=== PATIENT | male | born 1945 | race Caucasian/White ===

== ENCOUNTER 2018-10-13 12:30 | Inpatient (IN) | payer MEDICARE, OTHER ==
[2018-10-13] MEDS ORDERED: Sodium Chloride 0.9% 10 ML Syringe FLUSH PRN (12:59)
--- NOTE | 2018-10-13 13:29 | CR ---
[id number] RAD/RAD Chest PA or AP 1V EXAM: SINGLE VIEW CHEST. INDICATION: SHORTNESS OF BREATH COMPARISON: NO PREVIOUS SIMILAR EXAM IS AVAILABLE FINDINGS: The lungs are clear but hyperaerated. The aorta is tortuous. The cardiomediastinal contour is enlarged. IMPRESSION: AIRWAY DISEASE. Adrián Ambrosio MD 10/13/18 [id number] Thank you for allowing us to participate in the care of your patient.
[2018-10-13 13:52] LABS: ANION GAP 16.8 mmol/L (10-20); CHLORIDE,CL 104 mmol/L (98-107); SODIUM,NA 139 mmol/L (136-145)
[2018-10-13] MEDS ORDERED: Enoxaparin 80 MG/0.8 ML Syringe SUBCUT ONE (14:26)
--- NOTE | 2018-10-13 14:36 | EDM.PDOC ---
ED HPI GENERAL MEDICAL PROBLEM - General Chief Complaint: Respiratory Problem Stated Complaint: DIZZY,SHORTNESS BREATH, LIGHTHEADED Time Seen by Provider: 10/13/18 12:35 Source of Information: Reports: Patient History Limitations: Reports: No Limitations - History of Present Illness INITIAL COMMENTS - FREE TEXT/NARRATIVE: Pt. presents to ER with complaints of shortness of breath and palpitations. He states that he was out shovelling snow today, but states that he may have been having symptoms when he woke this AM. complains of lightheadedness. No nausea. No fever or chills. Denied any recent illness or cough. Denies any jaw, arm, neck or back pain. Denies any history of tachycardia in the past. He is currently on aspirin and is not currently anticoagulated. He states that he has had issues with bradycardia in the past. Denies any headache, difficulty with speech or ambulation. No numbness/tingling in extremities or face. He had a 12 lead in the clinic in 2018 which showed sinus bradycardia with 1st degree AV block. He had a holter study in 2017 which was predominantly sinus bradycardia with occasional accelerated junction/accelerated junctional rhythm. He has a history of EDGAR. He has a history of CAD with stent placement in 2001. Onset: Today Location: Reports: Chest, Generalized Associated Symptoms: Reports: Shortness of Breath. Denies: Chest Pain, Fever/ Chills, Headaches, Malaise, Nausea/Vomiting - Related Data Allergies Allergy/AdvReac Type Severity Reaction Status Date / Time atorvastatin calcium Allergy Other Verified 10/13/18 13:46 [From Lipitor] nitroglycerin Allergy Hives Verified 10/13/18 13:46 [From Nitro-Dur] Penicillins AdvReac Vomiting Verified 10/13/18 13:46 venom-honey bee AdvReac Vomiting Verified 10/13/18 13:46 [bee venom (honey bee)] Home Meds: Home Meds Aspirin 325 mg PO DAILY 12/17/13 [History] Ferrous Sulfate [Iron] 86 mg PO DAILY 12/17/13 [History] Isosorbide Mononitrate [Imdur] 30 mg PO DAILY 12/17/13 [History] Lisinopril [Prinivil] 10 mg PO DAILY 12/17/13 [History] Melatonin 6 mg PO BEDTIME 12/17/13 [History] Multivitamin [Multi Vitamin Daily] 1 each PO DAILY 12/17/13 [History] Nitroglycerin [Nitrostat] 0.4 mg SL ASDIRECTED 12/17/13 [History] Manning-3/DHA/Epa/Fish Oil [[place]-3 Fish Oil 1,000 MG Sfgl] 1,000 mg PO TID [History] Tamsulosin HCl 0.4 mg PO BEDTIME 12/17/13 [History] metroNIDAZOLE [Metrogel 1%] 1 applic TOP DAILY 12/17/13 [History] Atropine 1% [Isopto Atropine 1% Ophth Soln] 1 drop EYELF TID 06/13/15 [History] Ciprofloxacin [Ciloxan 0.3% Ophth Soln] 1 drop EYELF TID 06/13/15 [History] Ketorolac [Acular 0.5% Ophth Soln] 1 drop EYELF TID 06/13/15 [History] Pravastatin [Pravachol] 1 tab PO DAILY 06/13/15 [History] prednisoLONE acetate [Pred Forte 1% Ophth Soln] 1 drop EYELF TID 06/13/15 [ History] Past Medical History HEENT History: Reports: Cataract, Hard of Hearing, Other (See Below) Other HEENT History: post vitreous detachment. presbyopia Cardiovascular History: Reports: CAD, High Cholesterol, Hypertension, [place], Other (See Below) Other Cardiovascular History: first degree AV block Respiratory History: Reports: COPD, Sleep Apnea Gastrointestinal History: Reports: Celiac Disease, GERD, Hiatal Hernia Other Gastrointestinal History: hx of barretts Genitourinary History: Reports: BPH Other Psychiatric History: insomnia Dermatologic History: Reports: Other (See Below) Other Dermatologic History: rosacea - Past Surgical History HEENT Surgical History: Reports: Cataract Surgery, Tonsillectomy Cardiovascular Surgical History: Reports: Coronary Artery Stent, Other (See Below) Other Cardiovascular Surgeries/Procedures: coronary angioplasty GI Surgical History: Reports: Colonoscopy Musculoskeletal Surgical History: Reports: Shoulder Surgery Social & Family History - Tobacco Use Smoking Status *Q: Former Smoker Used Tobacco, but Quit: No - Recreational Drug Use Recreational Drug Use: No ED ROS GENERAL - Review of Systems Review Of Systems: See Below Constitutional: Reports: No Symptoms HEENT: Reports: No Symptoms Respiratory: Reports: Shortness of Breath (resolved during stay in ER) Cardiovascular: Reports: Lightheadedness, Palpitations. Denies: Chest Pain Endocrine: Reports: No Symptoms GI/Abdominal: Reports: No Symptoms : Reports: No Symptoms Musculoskeletal: Reports: No Symptoms Skin: Reports: No Symptoms Neurological: Reports: No Symptoms Psychiatric: Reports: No Symptoms Hematologic/Lymphatic: Reports: No Symptoms Immunologic: Reports: No Symptoms ED EXAM, GENERAL - Physical Exam Exam: See Below Exam Limited By: No Limitations General Appearance: Alert, WD/WN, No Apparent Distress Neck: Normal Inspection, Supple, Non-Tender Respiratory/Chest: No Respiratory Distress, Lungs Clear, Normal Breath Sounds, No Accessory Muscle Use, Chest Non-Tender Cardiovascular: Normal Peripheral Pulses, No Edema, Irregularly Irregular, Other (intermittent episodes of tachycardia into the 150-160 range (atrial fibrillation)) Peripheral Pulses: 3+: Radial (L) GI/Abdominal: Non-Tender, No Organomegaly, No Distention, No Mass (Male) Exam: Deferred Rectal (Males) Exam: Deferred Back Exam: Normal Inspection, Full Range of Motion, NT Extremities: Normal Inspection, Normal Range of Motion, Non-Tender, Normal Capillary Refill, No Pedal Edema Neurological: Alert, Oriented, CN II-XII Intact, Normal Cognition, Normal Gait, Normal Reflexes, No Motor/Sensory Deficits Psychiatric: Normal Affect, Normal Mood Skin Exam: Warm, Dry, Intact, Normal Color, No Rash EKG INTERPRETATION Rhythm: A-Fib (predominently in the low 100 range for rate with occasional RVR. Possible short run of v-tach (less than 10 beats) during which time patient was conscious and asymtomatic.) Course - Vital Signs Last Recorded V/S: Last Vital Signs Temp 36.4 C 10/13/18 12:35 Pulse 60 10/13/18 12:35 Resp 20 10/13/18 12:35 BP 123/81 10/13/18 12:35 Pulse Ox 94 L 10/13/18 12:35 - Orders/Labs/Meds Orders: Active Orders 24 hr Category Date Time Status EKG Documentation Completion [RC] STAT Care 10/13/18 12:59 Ordered CBC W/O DIFF,HEMOGRAM [HEME] Q3D Lab 10/14/18 07:00 Ordered CBC W/O DIFF,HEMOGRAM [HEME] Q3D Lab 10/17/18 07:00 Ordered CBC W/O DIFF,HEMOGRAM [HEME] Q3D Lab 10/20/18 07:00 Ordered CBC W/O DIFF,HEMOGRAM [HEME] Q3D Lab 10/23/18 07:00 Ordered CBC W/O DIFF,HEMOGRAM [HEME] Q3D Lab 10/26/18 07:00 Ordered CBC W/O DIFF,HEMOGRAM [HEME] Q3D Lab 10/29/18 07:00 Ordered CBC W/O DIFF,HEMOGRAM [HEME] Q3D Lab 11/01/18 07:00 Ordered Enoxaparin [Lovenox] Med 10/13/18 14:26 Once 80 mg SUBCUT ONETIME ONE Sodium Chloride 0.9% [Saline Flush] Med 10/13/18 12:59 Ordered 10 ml FLUSH ASDIRECTED PRN Peripheral IV Insertion Adult [OM.PC] Routine Oth 10/13/18 12:59 Ordered Medication Orders Sodium Chloride (Saline Flush) 10 ml FLUSH ASDIRECTED PRN PRN Reason: Keep Vein Open Labs: Laboratory Tests 10/13/18 10/13/18 10/13/18 Range/Units 13:13 13:13 13:13 WBC 6.5 (4.0-10.0) x10^3/uL RBC 4.40 L (4.5-6.0) x10^6/uL Hgb 13.3 L (14.0-18.0) g/dL Hct 40.1 (40.0-52.0) % MCV 91.1 (78.0-93.0) fL MCH 30.2 (26.0-32.0) pg MCHC 33.2 (32.0-36.0) g/dL RDW Coeff of Rogelio 14.1 (10.0-15.0) % Plt Count 263 (130-400) x10^3/uL Neut % (Auto) 79.7 (50.0-80.0) % Lymph % (Auto) 12.7 L (25.0-50.0) % George % (Auto) 6.0 (2.0-11.0) % Eos % (Auto) 1.1 (0.0-4.0) % Baso % (Auto) 0.5 (0.2-1.2) % PT 10.4 (9.6-11.4) SEC INR 1.0 L (2.0-3.5) Sodium 139 (136-145) mmol/L Potassium 3.8 (3.5-5.1) mmol/L Chloride 104 (98-107) mmol/L Carbon Dioxide 22 (21-32) mmol/L Anion Gap 16.8 (10-20) mmol/L BUN 17 (7-18) mg/dL Creatinine 0.7 (0.70-1.30) mg/dL Est Cr Clr Drug Dosing TNP Estimated GFR (MDRD) > 60 Glucose 89 (74-106) mg/dL Calcium 8.5 (8.5-10.1) mg/dL Corrected Calcium 9.06 (8.5-10.1) mg/dL Phosphorus 3.2 (2.6-4.7) mg/dL Magnesium 1.5 L (1.8-2.4) mg/dL Total Bilirubin 0.5 (0.2-1.0) mg/dL AST 19 (15-37) U/L ALT 28 (16-63) U/L Alkaline Phosphatase 63 (46-116) U/L Troponin I < 0.017 (<=0.056) ng/mL NT-Pro-B Natriuret Pep 48 (<=125) pg/mL Total Protein 6.0 L (6.4-8.2) g/dL Albumin 3.3 L (3.4-5.0) g/dL Globulin 2.7 Albumin/Globulin Ratio 1.22 Meds: Medications Generic Name Dose Route Start Last Admin Trade Name Freq PRN Reason Stop Dose Admin Sodium Chloride 10 ml 10/13/18 12:59 Saline Flush FLUSH ASDIRECTED PRN Keep Vein Open Departure - Departure Time of Disposition: 14:47 Disposition: Admitted As Inpatient 64 Clinical Impression: Atrial fibrillation with RVR - Discharge Information Care Plan Goals: Pt. will be admitted acutely. Dr. Frank will be admitting for Dr. Parmar. He is a code 1. He was started on lovenox 80mg SQ in ER. He was not having consistent episodes of tachycardia so he was not given any parenteral rate control medication. Dr. Frank states that she is going to contact Cardiology to determine in Amiodarone would be a better agent that a CCB or beta block given his episode of v-tach. All questions were answered. - My Orders Last 24 Hours: My Active Orders 10/13/18 12:59 EKG Documentation Completion [RC] STAT Sodium Chloride 0.9% [Saline Flush] 10 ml FLUSH ASDIRECTED PRN Peripheral IV Insertion Adult [OM.PC] Routine 10/13/18 14:26 Enoxaparin [Lovenox] 80 mg SUBCUT ONETIME ONE 10/14/18 07:00 CBC W/O DIFF,HEMOGRAM [HEME] Q3D 10/17/18 07:00 CBC W/O DIFF,HEMOGRAM [HEME] Q3D 10/20/18 07:00 CBC W/O DIFF,HEMOGRAM [HEME] Q3D 10/23/18 07:00 CBC W/O DIFF,HEMOGRAM [HEME] Q3D 10/26/18 07:00 CBC W/O DIFF,HEMOGRAM [HEME] Q3D 10/29/18 07:00 CBC W/O DIFF,HEMOGRAM [HEME] Q3D 11/01/18 07:00 CBC W/O DIFF,HEMOGRAM [HEME] Q3D - Assessment/Plan Last 24 Hours: My Active Orders 10/13/18 12:59 EKG Documentation Completion [RC] STAT Sodium Chloride 0.9% [Saline Flush] 10 ml FLUSH ASDIRECTED PRN Peripheral IV Insertion Adult [OM.PC] Routine 10/13/18 14:26 Enoxaparin [Lovenox] 80 mg SUBCUT ONETIME ONE 10/14/18 07:00 CBC W/O DIFF,HEMOGRAM [HEME] Q3D 10/17/18 07:00 CBC W/O DIFF,HEMOGRAM [HEME] Q3D 10/20/18 07:00 CBC W/O DIFF,HEMOGRAM [HEME] Q3D 10/23/18 07:00 CBC W/O DIFF,HEMOGRAM [HEME] Q3D 10/26/18 07:00 CBC W/O DIFF,HEMOGRAM [HEME] Q3D 10/29/18 07:00 CBC W/O DIFF,HEMOGRAM [HEME] Q3D 11/01/18 07:00 CBC W/O DIFF,HEMOGRAM [HEME] Q3D
[2018-10-13] MEDS ORDERED: Magnesium Sulfate/Water 50 ML IV ONE (15:26)
[2018-10-13] MEDS: Metoprolol Succinate 25 MG Tab.ER PO SCH (15:47)
[2018-10-13] MEDS: Fish Oil/Omega-3 Fatty Acids 1 Gm Cap PO SCH (19:38)
[2018-10-13] MEDS ORDERED: CLINDAMYCIN PHOSPHATE TP SCH (20:00)
[2018-10-13] MEDS ORDERED: Tamsulosin 0.4 MG Cap.ER PO SCH (20:00)
[2018-10-13] MEDS ORDERED: Melatonin 3 MG Tab PO SCH (20:00)
[2018-10-13] MEDS ORDERED: diphenhydrAMINE 25 MG Cap PO SCH (20:00)
--- NOTE | 2018-10-13 23:48 | HP ---
CHIEF COMPLAINT: Palpitations. HISTORY OF PRESENT ILLNESS: The patient is a 72-year-old male who presented to the emergency room with feeling short of breath with palpating heart. He commented he had been out shoveling snow at about 9 this morning and had several episodes of these. They last for a few seconds and then they get better. He decided to come to the emergency room at about 1 p.m. When he was seen by Rolo Brandon in the emergency room, he was found to have a heart rate of 122 with atrial fibrillation noted. As the patient relaxed, his heart rate did seem to go down. He was not given anything to help slow down his heart rate, but then it was noted that he did throw some PVCs, and there were a few concurrent PVCs up to 5 runs at a time. He was asymptomatic with these. To note, the patient has had previous coronary artery disease and he has had sinus bradycardia before. He had a stent placed in 2001 for coronary artery disease. He did have a Holter monitor done in 2017, which showed predominantly sinus rhythm with 32% sinus bradycardia, minimum heart rate 37, up to 63. He did have SVEs of 4 runs and some junctional rhythms which were rare. The patient has not had an echocardiogram done since his original heart problems in 2001, and otherwise he feels quite healthy. The patient does normally doctor with GI for problems with H. pylori gastritis with Lucero esophagitis as well as celiac disease. MEDICATIONS: His medications he is currently on are isosorbide mononitrate 30 mg half a pill every morning, Protonix 40 mg 1 pill in the morning, aspirin 81 mg 1 pill daily, clindamycin T 1% gel twice a day, Benadryl 25 mg 1 pill at bedtime to help with sleep, lisinopril 10 mg 1 pill daily, melatonin 3 mg 2 pills at bedtime, multivitamin 1 pill a day, [place] fish oil 1000 mg 1 pill 3 times a day, Protonix 40 mg 1 pill daily, Pravachol 20 mg 1 pill daily, Flomax 0.4 mg 1 pill every night at bedtime. The patient does use a CPAP machine for obstructive sleep apnea. ALLERGIES: Penicillin, Transderm-Nitro transdermal base, bee stings, Lipitor causes myalgias. PAST MEDICAL HISTORY: The patient has had coronary artery disease with stent placed in 03/2002. He is known to have Lucero esophagitis since 2006. He has had multiple EGDs for this. He has had some anemia in 2008, BPH since 2006. COPD. He used to smoke; he quit smoking in 2001, now he chews tobacco. He has had esophageal reflux disease, hiatal hernia with gastroesophageal reflux disease, hypercholesterolemia, hypertension, insomnia, obesity, obstructive sleep apnea. He had a sleep study on 06/26/2002, AHI was 26. He is on CPAP with 14 cm of water. He has had rosacea. Substance abuse, been abstinent since 2018 from alcohol. The patient does have celiac disease. PAST SURGICAL HISTORY: He has had cardiac cath; cataract surgery; colonoscopies multiple times, most recent on 11/25/2017. He had eye surgery, right shoulder surgery, tonsillectomy, and upper endoscopy with ablation in 2018. FAMILY MEDICAL HISTORY: His dad had some heart issues. Mother of pneumonia with some heart issues. SOCIAL HISTORY: The patient is a bachelor. Never been . 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 He had smoked a pack a day until he quit in 2001. He used to have problems with alcohol, but he has been abstinent since 2001 and has been actively involved with AA. REVIEW OF SYSTEMS: No recent cough, cold. No sore throat. No nausea. The patient does have celiac disease. He will have diarrhea if he does not follow his diet. No swelling in his lower extremities. He has had problems with bladder emptying out. He has not had any enlarged lymph glands. His mood is good. PHYSICAL EXAMINATION: Vital Signs: Objectively, his weight is 73.48 kg, height 1.65 m, temperature is 36.4, pulse 60, blood pressure is 123/81, respiratory rate is 20, and sats are 94. Pulse is now down to 60 from 122. Skin: [place], warm, and dry. HEENT: His nose is somewhat enlarged. His skin is somewhat vannessa on his cheeks. Pharynx is normal. Pupils are equal and reactive to light. Neck: Supple. No anterior cervical lymphadenopathy. No thyromegaly. No JVD. Heart: Regular rate and rhythm, without murmurs or bruits. Lungs: Clear to auscultation. Abdomen: Soft and nontender. No hepatosplenomegaly. Lower Extremities: No edema. Neurologic: He moves all extremities symmetric. He walks unassisted. His mood is very happy, bright, pleasant to visit with. LABORATORY STUDIES: Initial EKG in the emergency room showed atrial fibrillation with rapid ventricular rate; nonspecific T-wave abnormality; rate is at 122. The patient's chest x-ray was done which was clear other than some COPD changes present. His heart rhythm monitor had shown up to 5 beats of ventricular tachycardia present. Repeat EKG once he had come to the floor showed sinus bradycardia with PACs, first degree AV block, rate was 59. His laboratory data shows his white blood cell count 6.5, hemoglobin 13.3, and platelets 263. PT 1.0, magnesium 1.5, sodium 139, potassium 3.8, creatinine 0.7. GFR is greater than 60. BNP is 17, glucose 89, calcium 8.5, phosphorus 3.2, albumin 0.5, AST 19, ALT 28, and alkaline phosphatase 63. Troponin less than 0.017. ProBNP 48, total protein 6, albumin 3.3. I did contact on-call learning consultant regarding runs of atrial fibrillation with ventricular tachycardia present. Dr. Frank was contacted at 3:15 by [facility] [employer] [facility], and he returned the phone call at approximately 3:30. He reviewed tracings, he was not that impressed as the patient's rhythm now was going back to sinus rhythm, but some atrial irregularity. The patient had received Lovenox 80 mg in the emergency room. He did feel that the patient should be placed on a low-dose beta rodrick as a heart rate limiting medication. He felt possibly the wider complexes may be atrial fibrillation with aberrancy, and he did feel the patient should be anticoagulated. Discussed with the patient about use of medications that do not need to be monitored, such as Eliquis or Xarelto, or Coumadin, which would need to be monitored. Due to the potential short nature of use of anticoagulants, opted to start the patient on Eliquis, which will be started tomorrow. Also, the patient's magnesium should be replaced, which may also help his heart rhythm. If he would happen to have further abnormal heart rhythms, he would need to be transferred to [place]. IMPRESSION: 1. Paroxysmal atrial fibrillation with rapid ventricular rate, now slowed. 2. Ventricular tachycardia, paroxysmal. 3. Hypomagnesemia. 4. Coronary artery disease. 5. Chronic obstructive pulmonary disease. 6. Hypertension. 7. Obstructive sleep apnea. 8. Celiac disease. 9. Lucero esophagitis. 10.Hypercholesterolemia. PLAN: The patient will be placed on acute care. He will be monitored with telemetry with his heart rhythm. We will give IV replacement of his magnesium as well as we will start him on oral magnesium. We will start Eliquis tomorrow since he has already had Lovenox today. The patient is code level 1 status. If his heart would do recurrent abnormal heart rhythm problems, then the patient would need to have urgent transfer to [place]. To note currently, [place] has been under a blizzard warning and no travel has been advised, and the interstate is closed to [place], and so travel will be very treacherous to [place], and so therefore I do not want to transfer unless would be absolutely necessary. The patient is code level 1 status. To note, the patient will be admitted to Dr. Brandon Parmar's service; however, Dr. Brandon Parmar is not available today or tomorrow, so I will follow patient until if he is discharged tomorrow, or if he continues to stay in the weekend, Dr. Sharona Venegas will follow him. Cardiology recommended doing an echocardiogram as an outpatient as well as setting up a formal cardiology consult for the patient. We will have the patient be seen by Dr. Brandon Parmar within a week's time of discharge from the hospital. He commented that he does have an appointment to see Dr. Parmar for physical in about 3 weeks' time, but it is felt that was too long to wait to get this arranged. GM10/13/2018 16:14:01 MODL: 10/13/2018 23:38:06 /[id number]
[2018-10-14] MEDS: Pantoprazole 40 MG Tab.CR PO SCH ×2 (05:49→06:03)
[2018-10-14 05:53] VITALS: BP 174/97
[2018-10-14 07:18] LABS: CHLORIDE,CL 106 mmol/L (98-107); SODIUM,NA 139 mmol/L (136-145)
[2018-10-14] MEDS: Metoprolol Succinate 25 MG Tab.ER PO SCH (07:38)
[2018-10-14] MEDS: Fish Oil/Omega-3 Fatty Acids 1 Gm Cap PO SCH (07:38)
[2018-10-14] MEDS ORDERED: Apixaban 2.5 MG Tab PO SCH (08:00)
[2018-10-14] MEDS ORDERED: Lisinopril 10 MG Tab PO SCH (08:00)
[2018-10-14] MEDS ORDERED: Magnesium Oxide 400 MG Tab PO SCH ×2 (08:00→20:00)
[2018-10-14] MEDS ORDERED: Isosorbide Mononitrate 30 MG Tab.ER PO SCH (08:00)
[2018-10-14] MEDS ORDERED: Aspirin 81 MG Tab.EC PO SCH (08:00)
[2018-10-14] MEDS ORDERED: Multivitamin, Stress Formula with Zinc Tab PO SCH (08:00)
[2018-10-14] MEDS ORDERED: PRAVASTATIN PO SCH (08:00)
[2018-10-14] MEDS ORDERED: Magnesium Oxide 400 MG Tab PO ONE (08:32)
--- NOTE | 2018-10-14 09:31 | PN ---
Progress Note for BRENDAN DOZIER Date: 10/14/2018 Room #: VM.204 SUBJECTIVE: The patient has felt fine. He has done well overnight. His telemetry has shown spells of atrial fibrillation with a few ventricular ectopic beats, but nothing that has been more than a 2-beat run, and he has not had any symptoms of these whatsoever. OBJECTIVE: Vital Signs: His temperature is 36.5. He has not had a weight yet this morning. Pulse is 56, blood pressure is 174/97, respiratory rate 19, and sats 95%. General: Appears alert, in no acute distress. Heart: Regular rate and rhythm. Lungs: Clear to auscultation. Abdomen: Soft. LABORATORY DATA: His lab this morning shows hemoglobin 13.2 and white blood cell count 4.7. Sodium 139, potassium 4.0, creatinine 0.6, magnesium is still low at 1.6. IMAGING: EKG this morning showed 1st degree sinus bradycardia with PVCs. IMPRESSION: 1. Atrial fibrillation with rapid ventricular rate, now controlled. 2. Sinus bradycardia. 3. Paroxysmal ventricular tachycardia. 4. Hypomagnesemia. PLAN: We will discharge the patient home. We will increase his oral magnesium to twice a day, and we will give him an extra dose this morning. I did notify Dr. Brandon Parmar of the patient having been in the hospital and need for an echo as an outpatient as well as short-term followup next week in the clinic and eventual referral to Cardiology. The patient feels comfortable going home. The patient was told if he has repeat symptoms, he should return to the emergency room. GM10/14/2018 08:34:52 MODL: 10/14/2018 08:56:56 /[id number] AQUILINO
--- NOTE | 2018-10-14 10:19 | DISCH ---
PRIMARY DIAGNOSES: 1. Atrial fibrillation with rapid ventricular response. 2. Paroxysmal atrial fibrillation. 3. Paroxysmal ventricular tachycardia. 4. Hypomagnesemia. 5. Coronary artery disease. 6. Chronic obstructive pulmonary disease. 7. Hypertension. 8. Benign prostatic hypertrophy. SUMMARY OF HISTORY AND PHYSICAL: The patient is a 72-year-old male, who presented to the emergency room with palpitations. He had been out shoveling heavy wet snow, and he had several episodes where he felt his heart palpitating and became short of breath. When he came into the emergency room, his pulse was in the 120s with atrial fibrillation. He has not had a past history of atrial fibrillation that he has been aware of. However, while the patient was waiting in the emergency room, he did throw a few ventricular tachycardia beats, longest beat was 5 in a row. It was noted that his magnesium was low at 1.5. SUMMARY OF HOSPITAL COURSE: The patient was admitted to Acute Care. He had been given 1 dose of Lovenox in the emergency room. I did contact Cardiology, and they did recommend placing him on a beta-rodrick, even though he was in first-degree AV block with rates that do go down into the 50s. The patient was given IV magnesium 2 g as well as started on oral magnesium. He was started on Eliquis as an anticoagulant. Throughout the night in his stay, his heart rhythm has ranged between sinus rhythm as well as atrial fibrillation with some PVCs. His blood pressure was noted to be slightly elevated at the time of discharge, but he actually had been having a normal blood pressure of 123/81. So, I am not certain if this was related to machine. His troponin had been checked and initial troponin was less than 0.017, so it was not re-checked. ProBNP was 48. Chest x-ray just showed COPD. Magnesium was 1.5 on admission and it was 1.6 on the day of discharge. His potassium was 4.0, creatinine was 0.6, and GFR was greater than 60. Hemoglobin is 13.2 and platelet count is 247. DISCHARGE MEDICATIONS: Medications at the time of discharge will be 1. Eliquis 5 mg one p.o. b.i.d. 2. Aspirin 81 mg one pill daily. 3. Clindamycin 0.5 g topical b.i.d. 4. Benadryl 25 mg at bedtime. 5. Fish oil 1 g three times a day. 6. Isosorbide mononitrate 15 mg daily. 7. Lisinopril 10 mg daily. 8. Magnesium 400 mg b.i.d. 9. Melatonin 6 mg at bedtime. 10.Metoprolol succinate XL 25 mg half a pill daily. 11.Multivitamin one pill a day. 12.Protonix 40 mg one pill daily. 13.Pravachol 20 mg one pill daily. 14.Flomax 0.4 mg one pill at bedtime. DISCHARGE PLAN: The patient's activity is normal. He is to follow up with Dr. Alejo Parmar in the clinic next 4 to 5 days, and he will need to be set up for an echocardiogram as an outpatient as well as referral to Cardiology for his cardiac dysrhythmias. The patient was told to return to the emergency room if he has repeat palpitations. To note the patient is code level 1 status. GM10/14/2018 08:39:09 MODL: 10/14/2018 09:53:33 /[id number] MTDD
== END 2018-10-14 09:40 | disposition home or self-care (01) | DRG 310 ==
LOC: VM.ED 12:30 → VM.MS 14:36
PROVIDERS: ADMIT Family Medicine; ATTEND Family Medicine
DX: I48.0 Paroxysmal atrial fibrillation (principal); I25.10 Atherosclerotic heart disease of native coronary artery without angina pectoris; I47.2 Ventricular tachycardia; J44.9 Chronic obstructive pulmonary disease, unspecified; K21.9 Gastro-esophageal reflux disease without esophagitis; I10 Essential (primary) hypertension; E78.00 Pure hypercholesterolemia, unspecified; G47.00 Insomnia, unspecified; I44.0 Atrioventricular block, first degree; E66.9 Obesity, unspecified; N40.0 Benign prostatic hyperplasia without lower urinary tract symptoms; G47.33 Obstructive sleep apnea (adult) (pediatric); E83.42 Hypomagnesemia; D64.9 Anemia, unspecified; K22.70 Barrett's esophagus without dysplasia; H52.4 Presbyopia; R00.1 Bradycardia, unspecified; I25.2 Old myocardial infarction; Z91.030 Bee allergy status; Z87.891 Personal history of nicotine dependence; Z95.5 Presence of coronary angioplasty implant and graft; Z88.0 Allergy status to penicillin; Z79.82 Long term (current) use of aspirin; Z98.49 Cataract extraction status, unspecified eye; Z88.8 Allergy status to other drugs, medicaments and biological substances; Z79.899 Other long term (current) drug therapy; Z68.27 Body mass index [BMI] 27.0-27.9, adult
CPT/HCPCS: 36415; 71045; 80048; 80053; 83735; 83880; 84100; 84484; 85025; 85610; 93005; 94660; 96372; 99285-25; A9270-GY; J1650; J3475

== ENCOUNTER 2019-02-09 08:40 | Emergency (ER) | payer MEDICARE, OTHER ==
[2019-02-09] MEDS ORDERED: Diltiazem 50 MG/10 ML SDV IVPUSH ONE (09:12)
[2019-02-09] MEDS ORDERED: Sodium Chloride 0.9% 10 ML Syringe FLUSH PRN (09:12)
--- NOTE | 2019-02-09 09:24 | EDM.PDOC ---
ED HPI GENERAL MEDICAL PROBLEM - General Chief Complaint: Cardiovascular Problem Stated Complaint: sob, palpitations Time Seen by Provider: 02/09/19 08:55 Source of Information: Reports: Patient History Limitations: Reports: No Limitations - History of Present Illness INITIAL COMMENTS - FREE TEXT/NARRATIVE: Patient comes in this AM with complaints of shortness of breath and palpitations. Was seen here in September for similar type symptoms. Did get a BIVI pacemaker placed by Dr. Jha at [facility] in [place] January 30, 2019. Incisional site looks good. No sign of infection. Denies chest pain, headache , dizziness, abdominal pain. Is urinating and having regular bowel movements. Denies blood in either. No swelling. Is on warfarin for paroxysmal a-fib, 25 mg daily toprol. Significant GI history includes: Gastroesophageal reflux disease with esophagitis, Bacterial infection due to H. pylori, Lucero's esophagus with high grade dysplasia, Celiac disease, Hiatal hernia with gastroesophageal reflux. History of MA with stent placement 2001. Onset: Today, Sudden Duration: Intermittent Location: Reports: Chest Associated Symptoms: Reports: Shortness of Breath - Related Data Allergies Allergy/AdvReac Type Severity Reaction Status Date / Time atorvastatin calcium Allergy Other Verified 02/09/19 09:32 [From Lipitor] nitroglycerin Allergy Hives Verified 02/09/19 09:32 [From Nitro-Dur] Penicillins AdvReac Vomiting Verified 02/09/19 09:32 venom-honey bee AdvReac Vomiting Verified 02/09/19 09:32 [bee venom (honey bee)] Home Meds: Home Meds Isosorbide Mononitrate [Imdur] 15 mg PO DAILY 12/17/13 [History] Lisinopril [Prinivil] 10 mg PO DAILY 12/17/13 [History] Melatonin 6 mg PO BEDTIME 12/17/13 [History] Multivitamin [Multi Vitamin Daily] 1 each PO DAILY 12/17/13 [History] [place]-3/DHA/Epa/Fish Oil [[place]-3 Fish Oil 1,000 MG Sfgl] 1,000 mg PO TID [History] Tamsulosin HCl 0.4 mg PO BEDTIME 12/17/13 [History] Pravastatin [Pravachol] 20 mg PO DAILY 06/13/15 [History] Aspirin [Halfprin] 81 mg PO DAILY 10/13/18 [History] Clindamycin Phosphate [Cleocin T] 0.5 gm TP BID 10/13/18 [History] Pantoprazole Sodium [Protonix] 40 mg PO DAILY 10/13/18 [History] diphenhydrAMINE [Benadryl] 25 mg PO BEDTIME 10/13/18 [History] Metoprolol Succinate [Toprol XL] 25 mg PO DAILY 02/09/19 [History] Warfarin Sodium [Jantoven] 5 mg PO ASDIRECTED 02/09/19 [History] Past Medical History HEENT History: Reports: Cataract, Hard of Hearing, Other (See Below) Other HEENT History: post vitreous detachment. presbyopia Cardiovascular History: Reports: CAD, High Cholesterol, Hypertension, [place], Pacemaker, Other (See Below) Other Cardiovascular History: first degree AV block Respiratory History: Reports: COPD, Sleep Apnea Gastrointestinal History: Reports: Celiac Disease, GERD, Hiatal Hernia Other Gastrointestinal History: hx of barretts Genitourinary History: Reports: BPH Other Psychiatric History: insomnia Dermatologic History: Reports: Other (See Below) Other Dermatologic History: rosacea - Infectious Disease History Infectious Disease History: Reports: Chicken Pox - Past Surgical History HEENT Surgical History: Reports: Cataract Surgery, Tonsillectomy Cardiovascular Surgical History: Reports: Coronary Artery Stent, Other (See Below) Other Cardiovascular Surgeries/Procedures: coronary angioplasty GI Surgical History: Reports: Colonoscopy Musculoskeletal Surgical History: Reports: Shoulder Surgery Social & Family History - Family History Family Medical History: Noncontributory - Tobacco Use Years of Tobacco use: 50 Packs/Tins Daily: 0.2 - Caffeine Use Caffeine Use: Reports: Coffee, Soda ED ROS GENERAL - Review of Systems Review Of Systems: See Below Constitutional: Reports: No Symptoms HEENT: Reports: No Symptoms Respiratory: Reports: Shortness of Breath Cardiovascular: Reports: Palpitations Endocrine: Reports: No Symptoms GI/Abdominal: Reports: No Symptoms : Reports: No Symptoms Musculoskeletal: Reports: No Symptoms Skin: Reports: No Symptoms Neurological: Reports: Dizziness Psychiatric: Reports: No Symptoms Hematologic/Lymphatic: Reports: No Symptoms Immunologic: Reports: No Symptoms ED EXAM, GENERAL - Physical Exam Exam: See Below Exam Limited By: No Limitations General Appearance: Alert, WD/WN, No Apparent Distress Eye Exam: Bilateral Eye: EOMI, Normal Inspection Ears: Normal TMs Nose: Normal Inspection, Normal Mucosa, No Blood Throat/Mouth: Normal Inspection, Normal Lips, Normal Teeth, Normal Gums, Normal Oropharynx, Normal Voice, No Airway Compromise Head: Atraumatic, Normocephalic Neck: Normal Inspection, Supple, Non-Tender, Full Range of Motion Respiratory/Chest: No Respiratory Distress, Lungs Clear, Normal Breath Sounds, No Accessory Muscle Use, Chest Non-Tender Cardiovascular: Normal Peripheral Pulses, Regular Rate, Rhythm, No Edema, No Gallop, No JVD, No Murmur, No Rub Peripheral Pulses: 2+: Posterior Tibial (L), Posterior Tibial (R), Dorsalis Pedis (L), Dorsalis Pedis (R) GI/Abdominal: Normal Bowel Sounds, Soft, Non-Tender, No Organomegaly, No Distention, No Abnormal Bruit, No Mass Back Exam: Normal Inspection, Full Range of Motion, NT Extremities: Normal Inspection, Normal Range of Motion, Non-Tender, Normal Capillary Refill, No Pedal Edema Neurological: Alert, Oriented, CN II-XII Intact, Normal Cognition, Normal Gait, Normal Reflexes, No Motor/Sensory Deficits Psychiatric: Normal Affect, Normal Mood Course - Vital Signs Last Recorded V/S: Last Vital Signs Temp 36.3 C 02/09/19 08:45 Pulse 73 02/09/19 10:30 Resp 16 02/09/19 10:30 BP 148/86 H 02/09/19 10:30 Pulse Ox 97 02/09/19 10:30 - Orders/Labs/Meds Orders: Active Orders 24 hr Category Date Time Status EKG 12 Lead [EKG Documentation Completion] [RC] STAT Care 02/09/19 10:09 Ordered EKG Documentation Completion [RC] STAT Care 02/09/19 09:12 Active Sodium Chloride 0.9% [Saline Flush] Med 02/09/19 09:12 Active 10 ml FLUSH ASDIRECTED PRN Saline Lock Insert [OM.PC] Routine Oth 02/09/19 09:12 Ordered Medication Orders Sodium Chloride (Saline Flush) 10 ml FLUSH ASDIRECTED PRN PRN Reason: Keep Vein Open Labs: Laboratory Tests 02/09/19 02/09/19 02/09/19 Range/Units 09:12 09:12 09:12 WBC 4.4 (4.0-10.0) x10^3/uL RBC 4.43 L (4.5-6.0) x10^6/uL Hgb 13.5 L (14.0-18.0) g/dL Hct 39.7 L (40.0-52.0) % MCV 89.6 (78.0-93.0) fL MCH 30.5 (26.0-32.0) pg MCHC 34.0 (32.0-36.0) g/dL RDW Coeff of Rogelio 14.2 (10.0-15.0) % Plt Count 238 (130-400) x10^3/uL Neut % (Auto) 68.0 (50.0-80.0) % Lymph % (Auto) 20.9 L (25.0-50.0) % [place] % (Auto) 7.7 (2.0-11.0) % Eos % (Auto) 2.7 (0.0-4.0) % Baso % (Auto) 0.7 (0.2-1.2) % PT 18.9 H (10.0-12.8) SEC INR 1.7 L (2.0-3.5) Sodium 139 (136-145) mmol/L Potassium 4.0 (3.5-5.1) mmol/L Chloride 103 (98-107) mmol/L Carbon Dioxide 26 (21-32) mmol/L Anion Gap 14.0 (10-20) mmol/L BUN 12 (7-18) mg/dL Creatinine 0.8 (0.70-1.30) mg/dL Est Cr Clr Drug Dosing 72.00 mL/min Estimated GFR (MDRD) > 60 Glucose 121 H (74-106) mg/dL Calcium 8.9 (8.5-10.1) mg/dL Corrected Calcium 9.30 (8.5-10.1) mg/dL Magnesium 1.3 L (1.8-2.4) mg/dL Total Bilirubin 0.3 (0.2-1.0) mg/dL AST 16 (15-37) U/L ALT 24 (16-63) U/L Alkaline Phosphatase 69 (46-116) U/L Troponin I (<=0.056) ng/mL NT-Pro-B Natriuret Pep (<=450) pg/mL Total Protein 6.2 L (6.4-8.2) g/dL Albumin 3.5 (3.4-5.0) g/dL Globulin 2.7 Albumin/Globulin Ratio 1.30 TSH, Ultra Sensitive 3.053 (0.358-3.74) uIU/mL Urine Color (YELLOW) Urine Appearance (CLEAR) Urine pH (5.0-8.0) Ur Specific [place] Urine Protein (NEGATIVE) mg/dL Urine Glucose (UA) (NEGATIVE) mg/dL Urine Ketones (NEGATIVE) mg/dL Urine Occult Blood (NEGATIVE) Urine Nitrite (NEGATIVE) Urine Bilirubin (NEGATIVE) Urine Urobilinogen (0.2) EU/dL Ur Leukocyte Esterase (NEGATIVE) Urine RBC (NOT SEEN) /HPF Urine WBC (NOT SEEN) /HPF Ur Squamous Epith Cells (NEGATIVE) /HPF Urine Bacteria (NEGATIVE) /HPF Urine Mucus (NEGATIVE) /LPF 02/09/19 02/09/19 Range/Units 09:12 09:20 WBC (4.0-10.0) x10^3/uL RBC (4.5-6.0) x10^6/uL Hgb (14.0-18.0) g/dL Hct (40.0-52.0) % MCV (78.0-93.0) fL MCH (26.0-32.0) pg MCHC (32.0-36.0) g/dL RDW Coeff of Rogelio (10.0-15.0) % Plt Count (130-400) x10^3/uL Neut % (Auto) (50.0-80.0) % Lymph % (Auto) (25.0-50.0) % [place] % (Auto) (2.0-11.0) % Eos % (Auto) (0.0-4.0) % Baso % (Auto) (0.2-1.2) % PT (10.0-12.8) SEC INR (2.0-3.5) Sodium (136-145) mmol/L Potassium (3.5-5.1) mmol/L Chloride (98-107) mmol/L Carbon Dioxide (21-32) mmol/L Anion Gap (10-20) mmol/L BUN (7-18) mg/dL Creatinine (0.70-1.30) mg/dL Est Cr Clr Drug Dosing mL/min Estimated GFR (MDRD) Glucose (74-106) mg/dL Calcium (8.5-10.1) mg/dL Corrected Calcium (8.5-10.1) mg/dL Magnesium (1.8-2.4) mg/dL Total Bilirubin (0.2-1.0) mg/dL AST (15-37) U/L ALT (16-63) U/L Alkaline Phosphatase (46-116) U/L Troponin I < 0.017 (<=0.056) ng/mL NT-Pro-B Natriuret Pep 95 (<=450) pg/mL Total Protein (6.4-8.2) g/dL Albumin (3.4-5.0) g/dL Globulin Albumin/Globulin Ratio TSH, Ultra Sensitive (0.358-3.74) uIU/mL Urine Color Yellow (YELLOW) Urine Appearance Clear (CLEAR) Urine pH 6.5 (5.0-8.0) Ur Specific [place] 1.015 Urine Protein Negative (NEGATIVE) mg/dL Urine Glucose (UA) Negative (NEGATIVE) mg/dL Urine Ketones Negative (NEGATIVE) mg/dL Urine Occult Blood Negative (NEGATIVE) Urine Nitrite Negative (NEGATIVE) Urine Bilirubin Negative (NEGATIVE) Urine Urobilinogen 0.2 (0.2) EU/dL Ur Leukocyte Esterase Negative (NEGATIVE) Urine RBC 0-5 (NOT SEEN) /HPF Urine WBC 0-5 (NOT SEEN) /HPF Ur Squamous Epith Cells Rare (NEGATIVE) /HPF Urine Bacteria Occasional H (NEGATIVE) /HPF Urine Mucus Not seen (NEGATIVE) /LPF Meds: Medications Generic Name Dose Route Start Last Admin Trade Name Freq PRN Reason Stop Dose Admin Sodium Chloride 10 ml 02/09/19 09:12 Saline Flush FLUSH ASDIRECTED PRN Keep Vein Open Discontinued Medications Generic Name Dose Route Start Last Admin Trade Name Freq PRN Reason Stop Dose Admin Diltiazem HCl 20 mg 02/09/19 09:12 02/09/19 09:19 Cardizem IVPUSH 02/09/19 09:13 20 mg ONETIME ONE Administration - Radiology Interpretation Free Text/Narrative:: chest x-ray negative for acute process. Departure - Departure Time of Disposition: 11:15 Disposition: Home, Self-Care 01 Condition: Good Clinical Impression: Paroxysmal A-fib Instructions: Atrial Fibrillation, [id number] Referrals: Alejo Parmar MD [Primary Care Provider] - Forms: ED Department Discharge Additional Instructions: Plan 1. Stay well hydrated 2. Make sure to keep your appointment with cardiology to have your pacemaker adjusted if needed 3. Will send you home as all other labwork is normal and you are no longer in atrial fibrillation. 4. If your palpitations, dizziness, or shortness of breath return, come into the ED as needed 5. I did visit with Dr. Parmar. Will increase your Metoprolol to 25 mg TWICE daily now. I did send a prescription with you. 6. Have your INR checked as it was low today at 1.7. You may need to increase your coumadin. Please call if you have any further questions or concerns ED Communication - ED Communication Date/Time Date: 02/09/19 Time Called: 10:46 - Discussed Case With (1) Discussed Case With (1): Other (Dr. Jha with [facility] called and patient discussed. Will visit with [facility] regarding possible pacemaker interrogation. Talked with Ravinder with [employer]. Pacemaker sent report at 0200 this AM and was working. What were possible abnormal pacing spikes were likely the sensor showing up on EKG which he states is a frequent occurance.) - Discussed Case With (2) Discussed Case With (2): Other Provider (Dr. Parmar consulted regarding increasing Toprol to BID. Was fine with this for rate control and pacer) - Problem List & Annotations (1) Paroxysmal A-fib SNOMED Code(s): 885692181 Code(s): I48.0 - PAROXYSMAL ATRIAL FIBRILLATION Status: Acute Priority: Medium Current Visit: Yes - Problem List Review Problem List Initiated/Reviewed/Updated: Yes - My Orders Last 24 Hours: My Active Orders 02/09/19 09:12 EKG Documentation Completion [RC] STAT Sodium Chloride 0.9% [Saline Flush] 10 ml FLUSH ASDIRECTED PRN Saline Lock Insert [OM.PC] Routine 02/09/19 10:09 EKG 12 Lead [EKG Documentation Completion] [RC] STAT - Assessment/Plan Last 24 Hours: My Active Orders 02/09/19 09:12 EKG Documentation Completion [RC] STAT Sodium Chloride 0.9% [Saline Flush] 10 ml FLUSH ASDIRECTED PRN Saline Lock Insert [OM.PC] Routine 02/09/19 10:09 EKG 12 Lead [EKG Documentation Completion] [RC] STAT Assessment:: paroxysmal atrial fibrillation Plan: Plan 1. Stay well hydrated 2. Make sure to keep your appointment with cardiology to have your pacemaker adjusted if needed 3. Will send you home as all other labwork is normal and you are no longer in atrial fibrillation. 4. If your palpitations, dizziness, or shortness of breath return, come into the ED as needed 5. I did visit with Dr. Parmar. Will increase your Metoprolol to 25 mg TWICE daily now. I did send a prescription with you. 6. Have your INR checked as it was low today at 1.7. You may need to increase your coumadin. Please call if you have any further questions or concerns
[2019-02-09 09:58] LABS: CHLORIDE,CL 103 mmol/L (98-107); SODIUM,NA 139 mmol/L (136-145)
--- NOTE | 2019-02-09 10:10 | CR ---
[id number] RAD/RAD Chest PA or AP 1V EXAM: RAD Chest PA or AP 1V INDICATION: SHORTNESS OF BREATH, PALPITATIONS. COMPARISON: October 13, 2018. DISCUSSION: Cardiomediastinal silhouette is unchanged in size and contour compared the prior examination. Left chest wall cardiac conduction device. Right lung base parenchymal scarring or atelectasis similar to the prior examination. No infiltrate, effusion, pneumothorax, or edema. IMPRESSION: No acute findings or significant change from the prior examination. Hero Spencer MD 02/09/19 1009 Thank you for allowing us to participate in the care of your patient.
[2019-02-09 10:30] VITALS: BP 148/86; PULSE 73
== END 2019-02-09 11:20 | disposition home or self-care (01) ==
LOC: VM.ED 08:40
DX: I48.0 Paroxysmal atrial fibrillation (principal); I10 Essential (primary) hypertension; E78.00 Pure hypercholesterolemia, unspecified; I25.2 Old myocardial infarction; J44.9 Chronic obstructive pulmonary disease, unspecified; K21.9 Gastro-esophageal reflux disease without esophagitis; Z79.899 Other long term (current) drug therapy; Z79.01 Long term (current) use of anticoagulants; Z91.030 Bee allergy status; Z88.0 Allergy status to penicillin; Z88.8 Allergy status to other drugs, medicaments and biological substances; R06.02 Shortness of breath
CPT/HCPCS: 71045; 80053; 81001; 83735; 83880; 84443; 84484; 85025; 85610; 93005; 96374; 99284; 99285; J3490

== ENCOUNTER 2019-05-20 18:05 | Inpatient (IN) | payer MEDICARE, OTHER ==
[2019-05-20] MEDS ORDERED: Sodium Chloride 0.9% 10 ML Syringe FLUSH PRN (18:33)
[2019-05-20] MEDS ORDERED: Sodium Chloride 0.9% 1,000 ML IV ONE (18:35)
--- NOTE | 2019-05-20 18:47 | EDM.PDOC ---
ED HPI GENERAL MEDICAL PROBLEM - General Chief Complaint: Cardiovascular Problem Stated Complaint: HEART PROBLEMS Time Seen by Provider: 05/20/19 18:10 Source of Information: Reports: Patient History Limitations: Reports: No Limitations - History of Present Illness INITIAL COMMENTS - FREE TEXT/NARRATIVE: Patient comes into the emergency department with complaints of dizziness and heart palpitations. Patient states the heart palpitations started around noon today. He also states when these episodes do occur he's had some dizziness and shortness of breath accompanying this. He states he has had this in the past and was told that he was in atrial fibrillation. He is currently on Coumadin and does have a pacemaker to help with his cardiac disease. Patient denies having any active chest pain, headache, n/v or peripheral edema. He states that the heart palpitations come and go and they are not consistent. He cannot think of any activities that make the symptoms better or worse. He feels that he has had an adequate amount of water intake and he does not drink excessive more caffeine. Patient does admit to overindulging in salt products but does not state that he had any changes within the las 24 hours. Patient denies any other concerns or complaints. Onset: Sudden Improves with: Reports: None Associated Symptoms: Reports: No Other Symptoms - Related Data Allergies Allergy/AdvReac Type Severity Reaction Status Date / Time atorvastatin calcium Allergy Other Verified 05/20/19 18:26 [From Lipitor] gluten Allergy Diarrhea Verified 05/20/19 18:26 nitroglycerin Allergy Hives Verified 05/20/19 18:26 [From Nitro-Dur] Penicillins AdvReac Vomiting Verified 05/20/19 18:26 venom-honey bee AdvReac Vomiting Verified 05/20/19 18:26 [bee venom (honey bee)] Home Meds: Home Meds Isosorbide Mononitrate [Imdur] 15 mg PO DAILY 12/17/13 [History] Lisinopril [Prinivil] 5 mg PO DAILY 12/17/13 [History] Melatonin 5 mg PO BEDTIME 12/17/13 [History] Multivitamin [Multi Vitamin Daily] 1 each PO DAILY 12/17/13 [History] [place]-3/DHA/Epa/Fish Oil [[place]-3 Fish Oil 1,000 MG Sfgl] 1,000 mg PO TID [History] Tamsulosin HCl 0.4 mg PO BEDTIME 12/17/13 [History] Pravastatin [Pravachol] 20 mg PO DAILY 06/13/15 [History] Aspirin [Halfprin] 81 mg PO DAILY 10/13/18 [History] Clindamycin Phosphate [Cleocin T] 0.5 gm TP BID 10/13/18 [History] Pantoprazole Sodium [Protonix] 40 mg PO DAILY 10/13/18 [History] diphenhydrAMINE [Benadryl] 25 mg PO BEDTIME 10/13/18 [History] Metoprolol Succinate [Toprol XL] 75 mg PO DAILY 02/09/19 [History] Warfarin Sodium [Jantoven] 5 mg PO ASDIRECTED 02/09/19 [History] Past Medical History HEENT History: Reports: Cataract, Hard of Hearing, Other (See Below) Other HEENT History: post vitreous detachment. presbyopia Cardiovascular History: Reports: CAD, High Cholesterol, Hypertension, [place], Pacemaker, Other (See Below) Other Cardiovascular History: first degree AV block Respiratory History: Reports: COPD, Sleep Apnea Gastrointestinal History: Reports: Celiac Disease, GERD, Hiatal Hernia Other Gastrointestinal History: hx of barretts Genitourinary History: Reports: BPH Other Psychiatric History: insomnia Dermatologic History: Reports: Other (See Below) Other Dermatologic History: rosacea - Infectious Disease History Infectious Disease History: Reports: Chicken Pox - Past Surgical History HEENT Surgical History: Reports: Cataract Surgery, Tonsillectomy Cardiovascular Surgical History: Reports: Coronary Artery Stent, Other (See Below) Other Cardiovascular Surgeries/Procedures: coronary angioplasty GI Surgical History: Reports: Colonoscopy Musculoskeletal Surgical History: Reports: Shoulder Surgery Social & Family History - Family History Family Medical History: Noncontributory - Caffeine Use Caffeine Use: Reports: Coffee, Soda ED ROS GENERAL - Review of Systems Review Of Systems: ROS reveals no pertinent complaints other than HPI. Constitutional: Reports: No Symptoms HEENT: Reports: No Symptoms Respiratory: Reports: No Symptoms Cardiovascular: Reports: No Symptoms Endocrine: Reports: No Symptoms GI/Abdominal: Reports: No Symptoms : Reports: No Symptoms Musculoskeletal: Reports: No Symptoms Skin: Reports: No Symptoms Neurological: Reports: No Symptoms Psychiatric: Reports: No Symptoms Hematologic/Lymphatic: Reports: No Symptoms Immunologic: Reports: No Symptoms ED EXAM, GENERAL - Physical Exam Exam: See Below Exam Limited By: No Limitations General Appearance: Alert, WD/WN, No Apparent Distress Head: Atraumatic, Normocephalic Neck: Normal Inspection, Supple, Non-Tender, Full Range of Motion Respiratory/Chest: No Respiratory Distress, Lungs Clear, Normal Breath Sounds, No Accessory Muscle Use Course - Vital Signs Last Recorded V/S: Last Vital Signs Temp 36.8 C 05/20/19 18:05 Pulse 97 05/20/19 18:55 Resp 18 05/20/19 18:05 BP 146/77 H 05/20/19 18:55 Pulse Ox 96 05/20/19 18:05 - Orders/Labs/Meds Orders: Active Orders 24 hr Category Date Time Status Cardiac Monitoring [RC] . DIRECTED Care 05/20/19 18:33 Active EKG Documentation Completion [RC] STAT Care 05/20/19 18:33 Active Sodium Chloride 0.9% [Normal Saline] 1,000 ml Med 05/20/19 18:35 Active IV ONETIME Sodium Chloride 0.9% [Saline Flush] Med 05/20/19 18:33 Active 10 ml FLUSH ASDIRECTED PRN Peripheral IV Insertion Adult [OM.PC] Stat Oth 05/20/19 18:33 Ordered Medication Orders Sodium Chloride (Normal Saline) 1,000 mls @ 999 mls/hr IV ONETIME ONE Stop: 05/20/19 19:35 Last Admin: 05/20/19 18:53 Dose: 999 mls/hr Sodium Chloride (Saline Flush) 10 ml FLUSH ASDIRECTED PRN PRN Reason: Keep Vein Open Labs: Laboratory Tests 05/20/19 05/20/19 05/20/19 Range/Units 18:35 18:35 18:35 WBC 6.8 (4.0-10.0) x10^3/uL RBC 4.63 (4.5-6.0) x10^6/uL Hgb 14.1 (14.0-18.0) g/dL Hct 40.8 (40.0-52.0) % MCV 88.1 (78.0-93.0) fL MCH 30.5 (26.0-32.0) pg MCHC 34.6 (32.0-36.0) g/dL RDW Coeff of Rogelio 14.8 (10.0-15.0) % Plt Count 241 (130-400) x10^3/uL Neut % (Auto) 76.9 (50.0-80.0) % Lymph % (Auto) 14.5 L (25.0-50.0) % [place] % (Auto) 6.0 (2.0-11.0) % Eos % (Auto) 2.3 (0.0-4.0) % Baso % (Auto) 0.3 (0.2-1.2) % PT 41.2 H D (10.0-12.8) SEC INR 3.7 H (2.0-3.5) Sodium 142 (69-191) mmol/L Potassium 3.5 (1.5-9.9) mmol/L Chloride 105 (54-184) mmol/L Carbon Dioxide 24 (21-32) mmol/L Anion Gap 16.5 (10-20) mmol/L BUN 16 (7-18) mg/dL Creatinine 0.7 (0.70-1.30) mg/dL Est Cr Clr Drug Dosing 79.32 mL/min Estimated GFR (MDRD) > 60 Glucose 140 H (74-106) mg/dL Calcium 8.6 (8.5-10.1) mg/dL Corrected Calcium 9.16 (8.5-10.1) mg/dL Total Bilirubin 0.4 (0.2-1.0) mg/dL AST 19 (15-37) U/L ALT 27 (16-63) U/L Alkaline Phosphatase 72 (46-116) U/L Creatine Kinase 109 (39-308) U/L Troponin I < 0.017 (<=0.056) ng/mL NT-Pro-B Natriuret Pep 355 (<=450) pg/mL Total Protein 6.5 (6.4-8.2) g/dL Albumin 3.3 L (3.4-5.0) g/dL Globulin 3.2 Albumin/Globulin Ratio 1.03 Meds: Medications Generic Name Dose Route Start Last Admin Trade Name Freq PRN Reason Stop Dose Admin Sodium Chloride 1,000 mls @ 999 mls/hr 05/20/19 18:35 05/20/19 18:53 Normal Saline IV 05/20/19 19:35 999 mls/hr ONETIME ONE Administration Sodium Chloride 10 ml 05/20/19 18:33 Saline Flush FLUSH ASDIRECTED PRN Keep Vein Open Discontinued Medications Generic Name Dose Route Start Last Admin Trade Name Jamesq PRN Reason Stop Dose Admin Metoprolol Succinate 25 mg 05/20/19 18:51 05/20/19 18:55 Toprol Xl PO 05/20/19 18:52 25 mg ONETIME ONE Administration Departure - Departure Time of Disposition: 19:30 Disposition: Admitted As Inpatient 64 Condition: Good Clinical Impression: Atrial fibrillation with rapid ventricular response, Mild shortness of breath, Dizziness Referrals: Alejo Parmar MD [Primary Care Provider] - Forms: ED Department Discharge - My Orders Last 24 Hours: My Active Orders 05/20/19 18:33 Cardiac Monitoring [RC] . DIRECTED EKG Documentation Completion [RC] STAT Sodium Chloride 0.9% [Saline Flush] 10 ml FLUSH ASDIRECTED PRN Peripheral IV Insertion Adult [OM.PC] Stat 05/20/19 18:35 Sodium Chloride 0.9% [Normal Saline] 1,000 ml IV ONETIME - Assessment/Plan Last 24 Hours: My Active Orders 05/20/19 18:33 Cardiac Monitoring [RC] . DIRECTED EKG Documentation Completion [RC] STAT Sodium Chloride 0.9% [Saline Flush] 10 ml FLUSH ASDIRECTED PRN Peripheral IV Insertion Adult [OM.PC] Stat 05/20/19 18:35 Sodium Chloride 0.9% [Normal Saline] 1,000 ml IV ONETIME Assessment:: 1. Accelerated atrial fibrillation 2. Heart palpitations 3. Shortness of breath 4. Dizziness Plan: 1. Labs completed in the ER. Results reviewed with the patient 2. EKG completed in the ER. Results reviewed with patient 3. IV initiated 4. IV fluids provided in the emergency department 5. [facility] was contacted regarding patient's cardiac status. Her recommendation is to admit the patient to acute care for 2-3 days and continue to monitor and increased the patient's beta rodrick to help with accelerated rate. She also recommends to continue monitoring INR status 6. Metoprolol 25 mg by mouth given in the ER 7. Patient will be admitted to the hospitalist service over the weekend for acute care management. Nader Varma contacted and willing to admit for [facility] and care for the patient over the weekend. 8. All questions and concerns addressed prior to patient being admitted
[2019-05-20] MEDS ORDERED: Metoprolol Succinate 25 MG Tab.ER PO ONE (18:51)
[2019-05-20 19:09] LABS: CHLORIDE,CL 105 mmol/L (54-184); SODIUM,NA 142 mmol/L (69-191)
[2019-05-20 19:10] LABS: ANION GAP 16.5 mmol/L (10-20)
[2019-05-20] MEDS ORDERED: Warfarin 5 MG Tab PO SCH (20:15)
[2019-05-20] MEDS: diphenhydrAMINE 25 MG Cap PO SCH (20:36)
[2019-05-20] MEDS: Sodium Chloride 0.9% 1,000 ML IV SCH (20:36)
[2019-05-20] MEDS: Tamsulosin 0.4 MG Cap.ER PO SCH (20:36)
[2019-05-21] MEDS: Sodium Chloride 0.9% 1,000 ML IV SCH (02:52)
[2019-05-21] MEDS: Omeprazole 20 MG Cap.CR PO SCH ×2 (05:49→06:24)
--- NOTE | 2019-05-21 07:55 | PCM.HP.2 ---
H&P History of Present Illness - General Date of Service: 05/21/19 Admit Problem/Dx: Admission Diagnosis/Problem Admission Diagnosis/Problem Atrial fibrillation with rapid ventricular response SOB Dizziness Source of Information: Patient, Old Records, RN, RN Notes Reviewed History Limitations: Reports: No Limitations - History of Present Illness Initial Comments - Free Text/Narative: Patient comes into the emergency department last evening with complaints of dizziness and heart palpitations. Patient states the heart palpitations started around noon yesterday. He also states when these episodes do occur he's had some dizziness and shortness of breath accompanying this. He states he has had this in the past and was told that he was in atrial fibrillation. He is currently on Coumadin and does have a pacemaker to help with his cardiac disease. Patient denies having any active chest pain, headache, n/v or peripheral edema. He states that the heart palpitations come and go and they are not consistent. He cannot think of any activities that make the symptoms better or worse. He feels that he has had an adequate amount of water intake and he does not drink excessive more caffeine. Patient does admit to overindulging in salt products but does not state that he had any changes within the las 24 hours. Patient states he feels significant palpitations with the dizziness and SOB. These are new symptoms as he states. He does feel unsteady on his feel when the palpitations occur. Patient denies any other concerns or complaints. Onset of Symptoms: Reports: Gradual - Related Data Allergies/Adverse Reactions: Allergies Allergy/AdvReac Type Severity Reaction Status Date / Time atorvastatin calcium Allergy Other Verified 05/20/19 18:26 [From Lipitor] gluten Allergy Diarrhea Verified 05/20/19 18:26 nitroglycerin Allergy Hives Verified 05/20/19 18:26 [From Nitro-Dur] Penicillins AdvReac Vomiting Verified 05/20/19 18:26 venom-honey bee AdvReac Vomiting Verified 05/20/19 18:26 [bee venom (honey bee)] Home Medications: Home Meds Isosorbide Mononitrate [Imdur] 15 mg PO DAILY 12/17/13 [History] Lisinopril [Prinivil] 5 mg PO DAILY 12/17/13 [History] Melatonin 5 mg PO BEDTIME 12/17/13 [History] Multivitamin [Multi Vitamin Daily] 1 each PO DAILY 12/17/13 [History] Joes-3/DHA/Epa/Fish Oil [Joes-3 Fish Oil 1,000 MG Sfgl] 1,000 mg PO TID [History] Tamsulosin HCl 0.4 mg PO BEDTIME 12/17/13 [History] Pravastatin [Pravachol] 20 mg PO DAILY 06/13/15 [History] Aspirin [Halfprin] 81 mg PO DAILY 10/13/18 [History] Clindamycin Phosphate [Cleocin T] 0.5 gm TP BID 10/13/18 [History] Pantoprazole Sodium [Protonix] 40 mg PO DAILY 10/13/18 [History] diphenhydrAMINE [Benadryl] 25 mg PO BEDTIME 10/13/18 [History] Metoprolol Succinate [Toprol XL] 75 mg PO DAILY 02/09/19 [History] Warfarin Sodium [Jantoven] 5 mg PO ASDIRECTED 02/09/19 [History] Past Medical History HEENT History: Reports: Cataract, Hard of Hearing, Other (See Below) Other HEENT History: post vitreous detachment. presbyopia Cardiovascular History: Reports: CAD, High Cholesterol, Hypertension, [place], Pacemaker, Other (See Below) Other Cardiovascular History: first degree AV block Respiratory History: Reports: COPD, Sleep Apnea Gastrointestinal History: Reports: Celiac Disease, GERD, Hiatal Hernia Other Gastrointestinal History: hx of barretts Genitourinary History: Reports: BPH Other Psychiatric History: insomnia Dermatologic History: Reports: Other (See Below) Other Dermatologic History: rosacea - Infectious Disease History Infectious Disease History: Reports: Chicken Pox - Past Surgical History HEENT Surgical History: Reports: Cataract Surgery, Tonsillectomy Cardiovascular Surgical History: Reports: Coronary Artery Stent, Other (See Below) Other Cardiovascular Surgeries/Procedures: coronary angioplasty GI Surgical History: Reports: Colonoscopy Musculoskeletal Surgical History: Reports: Shoulder Surgery Social & Family History - Family History Family Medical History: Noncontributory - Tobacco Use Smoking Status *Q: Never Smoker - Caffeine Use Caffeine Use: Reports: Coffee, Soda - Recreational Drug Use Recreational Drug Use: No H&P Review of Systems - Review of Systems: Review Of Systems: See Below General: Denies: Fever, Chills Pulmonary: Reports: Shortness of Breath. Denies: Cough Cardiovascular: Reports: Palpitations, Lightheadedness. Denies: Chest Pain, Syncope Gastrointestinal: Denies: Abdominal Pain, Nausea, Vomiting Skin: Reports: No Symptoms Psychiatric: Reports: No Symptoms Exam - Exam Exam: See Below - Vital Signs Vital Signs: Last Vital Signs Temp 97.8 F 05/21/19 06:00 Pulse 71 05/21/19 06:00 Resp 16 05/21/19 06:00 BP 142/68 H 05/21/19 06:00 Pulse Ox 97 05/21/19 06:00 Weight: 164 lb - Exam General: Alert, Oriented, Cooperative, Mild Distress Lungs: Clear to Auscultation, Normal Respiratory Effort, Decreased Breath Sounds Cardiovascular: Normal S1, Normal S2, Irregular Rhythm, Tachycardia GI/Abdominal Exam: Normal Bowel Sounds, Soft, Non-Tender Skin: Warm, Dry Neuro Extensive - Mental Status: Alert, Oriented x3 - Patient Data Lab Results Last 24 hrs: Laboratory Results - last 24 hr 05/20/19 05/20/19 05/20/19 Range/Units 18:35 18:35 18:35 WBC 6.8 (4.0-10.0) x10^3/uL RBC 4.63 (4.5-6.0) x10^6/uL Hgb 14.1 (14.0-18.0) g/dL Hct 40.8 (40.0-52.0) % MCV 88.1 (78.0-93.0) fL MCH 30.5 (26.0-32.0) pg MCHC 34.6 (32.0-36.0) g/dL RDW Coeff of Rogelio 14.8 (10.0-15.0) % Plt Count 241 (130-400) x10^3/uL Neut % (Auto) 76.9 (50.0-80.0) % Lymph % (Auto) 14.5 L (25.0-50.0) % [place] % (Auto) 6.0 (2.0-11.0) % Eos % (Auto) 2.3 (0.0-4.0) % Baso % (Auto) 0.3 (0.2-1.2) % PT 41.2 H D (10.0-12.8) SEC INR 3.7 H (2.0-3.5) Sodium 142 (69-191) mmol/L Potassium 3.5 (1.5-9.9) mmol/L Chloride 105 (54-184) mmol/L Carbon Dioxide 24 (21-32) mmol/L Anion Gap 16.5 (10-20) mmol/L BUN 16 (7-18) mg/dL Creatinine 0.7 (0.70-1.30) mg/dL Est Cr Clr Drug Dosing 79.32 mL/min Estimated GFR (MDRD) > 60 Glucose 140 H (74-106) mg/dL Calcium 8.6 (8.5-10.1) mg/dL Corrected Calcium 9.16 (8.5-10.1) mg/dL Total Bilirubin 0.4 (0.2-1.0) mg/dL AST 19 (15-37) U/L ALT 27 (16-63) U/L Alkaline Phosphatase 72 (46-116) U/L Creatine Kinase 109 (39-308) U/L Troponin I < 0.017 (<=0.056) ng/mL NT-Pro-B Natriuret Pep 355 (<=450) pg/mL Total Protein 6.5 (6.4-8.2) g/dL Albumin 3.3 L (3.4-5.0) g/dL Globulin 3.2 Albumin/Globulin Ratio 1.03 Result Diagrams: 05/20/19 18:35 05/20/19 18:35 *Q Meaningful Use (ADM) - VTE *Q VTE Mechanical Contraindications *Q: At Risk for Falls Problem List Initiated/Reviewed/Updated: Yes Orders Last 24hrs: Active Orders 24 hr Category Date Time Status Patient Status [ADT] Routine ADT 05/20/19 19:56 Active Ambulate [RC] .PRN Care 05/20/19 19:55 Active Cardiac Monitoring [RC] 02,06,10,14,18,22 Care 05/20/19 18:33 Active EKG 12 Lead [EKG Documentation Completion] [RC] AM Care 05/21/19 08:00 Active Intake and Output [RC] 06,18 Care 05/20/19 19:59 Active Oxygen Therapy [RC] .PRN Care 05/20/19 19:56 Active Up ad Ines [RC] 08,20 Care 05/20/19 19:55 Active VTE/DVT Education [RC] .PRN Care 05/20/19 19:56 Active Vital Signs [RC] 02,06,10,14,18,22 Care 05/20/19 19:56 Active Consult to Case Management/Patient Services Clerk [CONS] Cons 05/20/19 19:55 Active Routine 2 Gram Sodium Diet [DIET] Diet 05/20/19 Breakfast Active Gluten Free Diet [DIET] Diet 05/21/19 Breakfast Active BASIC METABOLIC PANEL,BMP [CHEM] Routine Lab 05/21/19 05:11 Ordered CBC WITH AUTO DIFF [HEME] Routine Lab 05/21/19 05:11 Ordered INR,PT,PROTHROMBIN TIME [COAG] Routine Lab 05/21/19 05:11 Ordered MAGNESIUM [CHEM] Routine Lab 05/21/19 05:11 Ordered Aspirin [Halfprin] Med 05/21/19 08:00 Active 81 mg PO DAILY Isosorbide Mononitrate [Imdur] Med 05/21/19 08:00 Active 15 mg PO DAILY Lisinopril [Prinivil] Med 05/21/19 08:00 Active 5 mg PO DAILY Metoprolol Succinate [Toprol XL] Med 05/21/19 08:00 Active 100 mg PO DAILY Omeprazole Med 05/21/19 07:00 Active 20 mg PO DAILY@0700 Pharmacy Consult [Consult to Pharmacy] Med 05/20/19 19:45 Pending 1 each .XX ASDIRECTED Pravastatin [Pravachol] Med 05/21/19 08:00 Pending 20 mg PO DAILY Sodium Chloride 0.9% [Normal Saline] 1,000 ml Med 05/20/19 20:15 Active IV ASDIRECTED Sodium Chloride 0.9% [Saline Flush] Med 05/20/19 18:33 Active 10 ml FLUSH ASDIRECTED PRN Tamsulosin [Flomax] Med 05/20/19 20:30 Active 0.4 mg PO BEDTIME diphenhydrAMINE [Benadryl] Med 05/20/19 20:30 Active 25 mg PO BEDTIME Peripheral IV Insertion Adult [OM.PC] Stat Oth 05/20/19 18:33 Ordered Code Status [Resuscitation Status] Stat Resus Stat 05/20/19 19:29 Ordered Medication Orders Aspirin (Halfprin) 81 mg PO DAILY [facility] Diphenhydramine HCl (Benadryl) 25 mg PO BEDTIME [facility] Last Admin: 05/20/19 20:36 Dose: 25 mg Sodium Chloride (Normal Saline) 1,000 mls @ 50 mls/hr IV ASDIRECTED [facility] Last Admin: 05/21/19 02:52 Dose: 50 mls/hr Infusion: 05/21/19 02:52 Dose: 50 mls/hr Admin: 05/20/19 20:36 Dose: 50 mls/hr Isosorbide Mononitrate (Imdur) 15 mg PO DAILY [facility] Lisinopril (Prinivil) 5 mg PO DAILY [facility] Metoprolol Succinate (Toprol Xl) 100 mg PO DAILY [facility] Non-Formulary Medication (Pravastatin [Pravachol]) 20 mg PO DAILY [facility] Omeprazole (Omeprazole) 20 mg PO DAILY@0700 [facility] Last Admin: 05/21/19 06:24 Dose: Not Given Admin: 05/21/19 05:49 Dose: 20 mg Pharmacy Consult (Consult To Pharmacy) 1 each .XX ASDIRECTED [facility] Sodium Chloride (Saline Flush) 10 ml FLUSH ASDIRECTED PRN PRN Reason: Keep Vein Open Tamsulosin HCl (Flomax) 0.4 mg PO BEDTIME [facility] Last Admin: 05/20/19 20:36 Dose: 0.4 mg Assessment/Plan Comment:: 1. Uncontrolled Afib 2. SOB 2/2 #1 3. Dizziness 2/2 #1 PLAN: Patient will be admitted acute for the above diagnosis. Metoprolol will be increased to 100 mg daily per Cardiology request. No changes with any other medications. Patient wishes to be a full code. Patient does wish to be transferred to a higher level of care. Telemetry. Will recheck labs and EKG today. Gluten free heart healthy diet. DVT prophylaxis with early ambulation. Anticipate 2-3 day stay due to med changes and admitting symptoms. Need to make sure symptoms resolved with increase in Metoprolol and blood pressure remains stable. Last night Coumadin dose held due to INR or 3.7. Recheck INR today. Will have pharmacy to dose and monitor Coumadin. - Mortality Measure Prognosis:: Good
[2019-05-21] MEDS ORDERED: Pantoprazole 40 MG Tab.CR PO SCH (08:00)
[2019-05-21] MEDS: Metoprolol Succinate 50 MG Tab.ER PO SCH (08:11)
[2019-05-21] MEDS: Isosorbide Mononitrate 30 MG Tab.ER PO SCH (08:11)
[2019-05-21] MEDS: Aspirin 81 MG Tab.EC PO SCH (08:12)
[2019-05-21] MEDS: Lisinopril 5 MG Tab PO SCH (08:12)
[2019-05-21 09:05] LABS: CHLORIDE,CL 106 mmol/L (54-184); SODIUM,NA 142 mmol/L (69-191)
[2019-05-21 09:17] LABS: ANION GAP 13.6 mmol/L (10-20)
[2019-05-21] MEDS ORDERED: Magnesium Sulfate/Water 2 GM in Premix Bag 1 BAG IV ONE (19:51)
[2019-05-21] MEDS ORDERED: Warfarin 2.5 MG Tab PO ONE (20:00)
[2019-05-21] MEDS: diphenhydrAMINE 25 MG Cap PO SCH (20:50)
[2019-05-21] MEDS: Tamsulosin 0.4 MG Cap.ER PO SCH (20:50)
[2019-05-22] MEDS: Omeprazole 20 MG Cap.CR PO SCH (06:14)
[2019-05-22 06:44] VITALS: BP 153/89; PULSE 74
[2019-05-22 06:56] LABS: ANION GAP 15.8 mmol/L (10-20); CHLORIDE,CL 106 mmol/L (54-184); SODIUM,NA 143 mmol/L (69-191)
[2019-05-22] MEDS: Isosorbide Mononitrate 30 MG Tab.ER PO SCH (08:25)
[2019-05-22] MEDS: Metoprolol Succinate 50 MG Tab.ER PO SCH (08:26)
[2019-05-22] MEDS: Lisinopril 5 MG Tab PO SCH (08:26)
[2019-05-22] MEDS: Aspirin 81 MG Tab.EC PO SCH (08:28)
--- NOTE | 2019-05-22 09:42 | PCM.DCSUM1 ---
Discharge Summary - Hospital Course Free Text/Narrative:: Patient presented to the ER complaining of palpitations and lightheadedness. Similar to prior spells he's had. Has a history of paroxysmal A. fib, his Coumadin INR was also supratherapeutic. I can't find a record of but his rate was, is recorded as 97 in the ER, his EKG showed a rate of around 80s. They increase his Toprol from 75 to 100 mg daily for Afib RVR. He is currently asymptomatic. 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 States his last pacemaker check was normal. Last visit with the pacemaker clinic in March they similarly increased his metoprolol from 50- 75 because of some similar palpitations. Rate remains a bit labile with activity on the telemetry otherwise looks pretty normal. He goes in and out of pacing. His vital signs are otherwise normal. Exam reveals heart and lungs clear to auscultation, rate and rhythm are currently normal. Extremities warm well perfused. We will discharge him on a higher dose of 100 mg Toprol. We will inform pacemaker clinic and they can do another interrogation in a week or two on the higher dose. Can otherwise return as needed for symptoms. Coumadin level down to 1.7 now, anticoagulation clinic in [place] will follow. Diagnosis: Stroke: No - Discharge Data Discharge Date: 05/22/19 Discharge Disposition: Home, Self-Care 01 Condition: Stable - Referral to Home Health Primary Care Physician: Alejo Parmar MD - Patient Summary/Data Consults: Consultations 05/20/19 19:55 Consult to Case Management/Head Boys Tennis Coach [CONS] Routine - Discharge Plan *PRESCRIPTION DRUG MONITORING PROGRAM REVIEWED*: Not Applicable *COPY OF PRESCRIPTION DRUG MONITORING REPORT IN PATIENT ADEEL: Not Applicable Home Medications: Home Meds Isosorbide Mononitrate [Imdur] 15 mg PO DAILY 12/17/13 [History] Melatonin 5 mg PO BEDTIME 12/17/13 [History] Multivitamin [Multi-Vitamin Daily] 1 each PO DAILY 12/17/13 [History] Eldena-3/DHA/Epa/Fish Oil [Eldena-3 Fish Oil 1,000 MG Sfgl] 1,000 mg PO TID [History] Tamsulosin HCl 0.4 mg PO BEDTIME 12/17/13 [History] Pravastatin [Pravachol] 20 mg PO DAILY 06/13/15 [History] Aspirin [Halfprin] 81 mg PO DAILY 10/13/18 [History] Clindamycin Phosphate [Cleocin T] 0.5 gm TP BID 10/13/18 [History] diphenhydrAMINE [Benadryl] 25 mg PO BEDTIME 10/13/18 [History] Warfarin Sodium [Jantoven] 7.5 mg PO MOWEFR 02/09/19 [History] Lisinopril [Prinivil] 5 mg PO DAILY tablet 05/22/19 [Rx] Metoprolol Succinate [Toprol XL 50mg] 100 mg PO DAILY #0 tab.er 05/22/19 [Rx] Omeprazole 20 mg PO DAILY@0700 cap.cr 05/22/19 [Rx] Pharmacy Consult [Consult to Pharmacy] 1 each .XX ASDIRECTED each 05/22/19 [Rx] Warfarin [Coumadin] 7.5 mg PO [id number]@1999 tablet 05/22/19 [Rx] Warfarin [Coumadin] 10 mg PO BEDTIME tablet 05/22/19 [Rx] Warfarin [Coumadin] 10 mg PO SUTUTHSA 05/22/19 [History] Warfarin [Coumadin] 10 mg PO [id number]@1999 tablet 05/22/19 [Rx] Forms: ED Department Discharge Referrals: Alejo Parmar MD [Primary Care Provider] - - Discharge Summary/Plan Comment DC Time >30 min.: No - Patient Data Vitals - Most Recent: Last Vital Signs Temp 37.1 C 05/22/19 01:50 Pulse 74 05/22/19 08:26 Resp 18 05/22/19 06:00 BP 153/89 H 05/22/19 08:26 Pulse Ox 99 05/22/19 06:00 Weight - Most Recent: 74.389 kg I&O - Last 24 hours: Intake & Output 05/21/19 05/22/19 05/22/19 22:59 06:59 14:59 Intake Total 1420 840 Output Total 500 200 Balance 920 640 Lab Results - Last 24 hrs: Laboratory Results - last 24 hr 05/22/19 05/22/19 Range/Units 06:06 06:06 PT 19.5 H (10.0-12.8) SEC INR 1.7 L (2.0-3.5) Sodium 143 (69-191) mmol/L Potassium 3.8 (1.5-9.9) mmol/L Chloride 106 (54-184) mmol/L Carbon Dioxide 25 (21-32) mmol/L Anion Gap 15.8 (10-20) mmol/L BUN 10 (7-18) mg/dL Creatinine 0.7 (0.70-1.30) mg/dL Est Cr Clr Drug Dosing 79.32 mL/min Estimated GFR (MDRD) > 60 Glucose 90 (74-106) mg/dL Calcium 8.6 (8.5-10.1) mg/dL Med Orders - Current: Current Medications Aspirin (Halfprin) 81 mg PO DAILY [facility] Last Admin: 05/22/19 08:28 Dose: 81 mg Diphenhydramine HCl (Benadryl) 25 mg PO BEDTIME [facility] Last Admin: 05/21/19 20:50 Dose: 25 mg Isosorbide Mononitrate (Imdur) 15 mg PO DAILY [facility] Last Admin: 05/22/19 08:25 Dose: 15 mg Lisinopril (Prinivil) 5 mg PO DAILY [facility] Last Admin: 05/22/19 08:26 Dose: 5 mg Metoprolol Succinate (Toprol Xl) 100 mg PO DAILY [facility] Last Admin: 05/22/19 08:26 Dose: 100 mg Pravastatin [ Pravachol] 20mg (Own Supply) 0 mg PO DAILY [facility] Omeprazole (Omeprazole) 20 mg PO DAILY@0700 [facility] Last Admin: 05/22/19 06:14 Dose: 20 mg Pharmacy Consult (Consult To Pharmacy) 1 each .XX ASDIRECTED [facility] Sodium Chloride (Saline Flush) 10 ml FLUSH ASDIRECTED PRN PRN Reason: Keep Vein Open Tamsulosin HCl (Flomax) 0.4 mg PO BEDTIME [facility] Last Admin: 05/21/19 20:50 Dose: 0.4 mg Warfarin Sodium (Coumadin) 10 mg PO BEDTIME [facility] Stop: 05/22/19 20:01 Warfarin Sodium (Coumadin) 7.5 mg PO MoWeFr@1999 [facility] Warfarin Sodium (Coumadin) 10 mg PO SuTuThSa@1999 [facility] Discontinued Medications Sodium Chloride (Normal Saline) 1,000 mls @ 999 mls/hr IV ONETIME ONE Stop: 05/20/19 19:35 Last Admin: 05/20/19 18:53 Dose: 999 mls/hr Sodium Chloride (Normal Saline) 1,000 mls @ 50 mls/hr IV ASDIRECTED [facility] Last Admin: 05/21/19 02:52 Dose: 50 mls/hr Magnesium Sulfate 2 gm/ Premix 50 mls @ 25 mls/hr IV ONETIME ONE Stop: 05/21/19 21:50 Last Admin: 05/21/19 20:59 Dose: 25 mls/hr Metoprolol Succinate (Toprol Xl) 25 mg PO ONETIME ONE Stop: 05/20/19 18:52 Last Admin: 05/20/19 18:55 Dose: 25 mg Warfarin Sodium (Coumadin) 5 mg PO ASDIRECTED [facility] Warfarin Sodium (Coumadin) 7.5 mg PO ONETIME ONE Stop: 05/21/19 20:01 Last Admin: 05/21/19 20:50 Dose: 7.5 mg *Q Meaningful Use (DIS) - VTE *Q VTE Mechanical Contraindications *Q: At Risk for Falls
[2019-05-22] MEDS: PRAVASTATIN 20 MG PO SCH (10:12)
[2019-05-22] MEDS ORDERED: Warfarin 5 MG Tab PO SCH (20:00)
[2019-05-23] MEDS ORDERED: Warfarin 5 MG Tab PO SCH (20:00)
[2019-05-24] MEDS ORDERED: Warfarin 2.5 MG Tab PO SCH (20:00)
== END 2019-05-22 10:50 | disposition home or self-care (01) | DRG 310 ==
LOC: VM.ED 18:05 → UNDOADMIN 19:26 → VM.MS 19:26 → UNDODISIN 05-22 10:50
PROVIDERS: ADMIT Nurse Practitioner Family; ATTEND Family Medicine
DX: I48.91 Unspecified atrial fibrillation (principal); R06.02 Shortness of breath; R42 Dizziness and giddiness; I48.0 Paroxysmal atrial fibrillation; I49.5 Sick sinus syndrome; I44.0 Atrioventricular block, first degree; H52.4 Presbyopia; I25.10 Atherosclerotic heart disease of native coronary artery without angina pectoris; E78.00 Pure hypercholesterolemia, unspecified; I10 Essential (primary) hypertension; J44.9 Chronic obstructive pulmonary disease, unspecified; G47.30 Sleep apnea, unspecified; K21.9 Gastro-esophageal reflux disease without esophagitis; G47.00 Insomnia, unspecified; H91.90 Unspecified hearing loss, unspecified ear; N40.0 Benign prostatic hyperplasia without lower urinary tract symptoms; I25.2 Old myocardial infarction; Z90.89 Acquired absence of other organs; Z95.5 Presence of coronary angioplasty implant and graft; Z98.890 Other specified postprocedural states; Z98.49 Cataract extraction status, unspecified eye; Z79.899 Other long term (current) drug therapy; Z79.01 Long term (current) use of anticoagulants; Z95.0 Presence of cardiac pacemaker; Z88.8 Allergy status to other drugs, medicaments and biological substances; Z88.0 Allergy status to penicillin; Z91.030 Bee allergy status; Z79.82 Long term (current) use of aspirin
CPT/HCPCS: 36415; 80048; 80053; 82550; 83735; 83880; 84484; 85025; 85610; 93005; 96360; 99284-GF; 99285-25; A9270-GY; J3475; J7030

== ENCOUNTER 2019-06-02 13:51 | Emergency (ER) | payer MEDICARE, OTHER ==
[2019-06-02] MEDS ORDERED: Sodium Chloride 0.9% 10 ML Syringe FLUSH PRN (13:53)
[2019-06-02 14:39] LABS: ANION GAP 15.4 mmol/L (10-20); CHLORIDE,CL 104 mmol/L (54-184); SODIUM,NA 140 mmol/L (69-191)
--- NOTE | 2019-06-02 15:03 | EDM.PDOC ---
ED HPI GENERAL MEDICAL PROBLEM - General Stated Complaint: CHEST PAINS Time Seen by Provider: 06/02/19 13:51 Source of Information: Reports: Patient History Limitations: Reports: No Limitations - History of Present Illness INITIAL COMMENTS - FREE TEXT/NARRATIVE: Pt. presents to ER with complaints of palpitations and lightheadedness that he has been experiencing since last night. He has a history of atrial fibrillation and is on coumadin. He was admitted to our facility with a-fib with RVR on . His toprol XL was increased and he was discharged. Cardiology was consulted and advised to further intervention was needed, and he was advised to return to ER if he has any continued persistent palpitations, chest pain, shortness of breath, or other worrisome signs/symptoms. Pt. does have a biventricular pacer for sick sinus syndrome. He states that he is not experiencing any fever or chills. No chest pain or shortness of breath. No nausea, vomiting, or headache. He has not been diaphoretic. Pt. states that his symptoms are intermittent in nature. He was transported to ER by a friend. Pt. denies any increased peripheral edema. Denies any cough. No orthopnea. Onset: Today Location: Reports: Chest, Generalized Associated Symptoms: Denies: Chest Pain, Cough, Diaphoresis, Fever/Chills, Malaise, Nausea/Vomiting, Seizure, Shortness of Breath, Syncope, Weakness - Related Data Allergies Allergy/AdvReac Type Severity Reaction Status Date / Time atorvastatin calcium Allergy Other Verified 05/20/19 18:26 [From Lipitor] gluten Allergy Diarrhea Verified 05/20/19 18:26 nitroglycerin Allergy Hives Verified 05/20/19 18:26 [From Nitro-Dur] Penicillins AdvReac Vomiting Verified 05/20/19 18:26 venom-honey bee AdvReac Vomiting Verified 05/20/19 18:26 [bee venom (honey bee)] Home Meds: Home Meds Isosorbide Mononitrate [Imdur] 15 mg PO DAILY 12/17/13 [History] Melatonin 5 mg PO BEDTIME 12/17/13 [History] Multivitamin [Multi-Vitamin Daily] 1 each PO DAILY 12/17/13 [History] [place]-3/DHA/Epa/Fish Oil [[place]-3 Fish Oil 1,000 MG Sfgl] 1,000 mg PO TID [History] Tamsulosin HCl 0.4 mg PO BEDTIME 12/17/13 [History] Pravastatin [Pravachol] 20 mg PO DAILY 06/13/15 [History] Aspirin [Halfprin] 81 mg PO DAILY 10/13/18 [History] Clindamycin Phosphate [Cleocin T] 0.5 gm TP BID 10/13/18 [History] diphenhydrAMINE [Benadryl] 25 mg PO BEDTIME 10/13/18 [History] Warfarin Sodium [Jantoven] 7.5 mg PO MOWEFR 02/09/19 [History] Lisinopril [Prinivil] 5 mg PO DAILY tablet 05/22/19 [Rx] Metoprolol Succinate [Toprol XL 50mg] 100 mg PO DAILY #0 tab.er 05/22/19 [Rx] Omeprazole 20 mg PO DAILY@0700 cap.cr 05/22/19 [Rx] Pharmacy Consult [Consult to Pharmacy] 1 each .XX ASDIRECTED each 05/22/19 [Rx] Warfarin [Coumadin] 7.5 mg PO MoWeFr@1999 tablet 05/22/19 [Rx] Warfarin [Coumadin] 10 mg PO BEDTIME tablet 05/22/19 [Rx] Warfarin [Coumadin] 10 mg PO SUTUTHSA 05/22/19 [History] Warfarin [Coumadin] 10 mg PO SuTuThSa@1999 tablet 05/22/19 [Rx] Past Medical History HEENT History: Reports: Cataract, Hard of Hearing, Other (See Below) Other HEENT History: post vitreous detachment. presbyopia Cardiovascular History: Reports: CAD, High Cholesterol, Hypertension, [place], Pacemaker, Other (See Below) Other Cardiovascular History: first degree AV block Respiratory History: Reports: COPD, Sleep Apnea Gastrointestinal History: Reports: Celiac Disease, GERD, Hiatal Hernia Other Gastrointestinal History: hx of barretts Genitourinary History: Reports: BPH Other Psychiatric History: insomnia Dermatologic History: Reports: Other (See Below) Other Dermatologic History: rosacea - Infectious Disease History Infectious Disease History: Reports: Chicken Pox - Past Surgical History HEENT Surgical History: Reports: Cataract Surgery, Tonsillectomy Cardiovascular Surgical History: Reports: Coronary Artery Stent, Other (See Below) Other Cardiovascular Surgeries/Procedures: coronary angioplasty GI Surgical History: Reports: Colonoscopy Musculoskeletal Surgical History: Reports: Shoulder Surgery Social & Family History - Family History Family Medical History: Noncontributory - Caffeine Use Caffeine Use: Reports: Coffee, Soda ED ROS GENERAL - Review of Systems Review Of Systems: See Below Constitutional: Reports: No Symptoms HEENT: Reports: No Symptoms Respiratory: Reports: No Symptoms Cardiovascular: Reports: Palpitations Endocrine: Reports: No Symptoms GI/Abdominal: Reports: No Symptoms : Reports: No Symptoms Musculoskeletal: Reports: No Symptoms Skin: Reports: No Symptoms Neurological: Reports: No Symptoms Psychiatric: Reports: No Symptoms Hematologic/Lymphatic: Reports: No Symptoms Immunologic: Reports: No Symptoms ED EXAM, GENERAL - Physical Exam Exam: See Below Exam Limited By: No Limitations General Appearance: Alert, WD/WN, No Apparent Distress Throat/Mouth: Normal Inspection, Normal Lips, Normal Teeth, Normal Gums, Normal Oropharynx, Normal Voice, No Airway Compromise Head: Atraumatic, Normocephalic Neck: Normal Inspection, Supple, Non-Tender, Full Range of Motion Respiratory/Chest: No Respiratory Distress, Lungs Clear, Normal Breath Sounds, No Accessory Muscle Use, Chest Non-Tender Cardiovascular: Normal Peripheral Pulses, No Edema, No Gallop, No JVD, No Murmur , No Rub, Irregularly Irregular. No: Tachycardia Peripheral Pulses: 4+: Radial (R) GI/Abdominal: Soft, Non-Tender, No Organomegaly, No Distention, No Mass (Male) Exam: Deferred Rectal (Males) Exam: Deferred Back Exam: Normal Inspection, Full Range of Motion Extremities: Normal Inspection, Normal Range of Motion, Non-Tender, No Pedal Edema, Normal Capillary Refill Neurological: Alert, Oriented, CN II-XII Intact, Normal Cognition, Normal Gait, Normal Reflexes, No Motor/Sensory Deficits Psychiatric: Normal Affect, Normal Mood Skin Exam: Warm, Dry, Intact, Normal Color, No Rash EKG INTERPRETATION Rhythm: A-Fib Comparison: No Change EKG Interpretation Comments: A-fib with intermittent pacing, unchanged from previous. Course - Orders/Labs/Meds Orders: Active Orders 24 hr Category Date Time Status EKG Documentation Completion [RC] STAT Care 06/02/19 13:53 Active Sodium Chloride 0.9% [Saline Flush] Med 06/02/19 13:53 Active 10 ml FLUSH ASDIRECTED PRN Peripheral IV Insertion Adult [OM.PC] Routine Oth 06/02/19 13:53 Ordered Medication Orders Sodium Chloride (Saline Flush) 10 ml FLUSH ASDIRECTED PRN PRN Reason: Keep Vein Open Labs: Laboratory Tests 06/02/19 06/02/19 06/02/19 Range/Units 14:05 14:05 14:05 WBC 5.6 (4.0-10.0) x10^3/uL RBC 4.50 (4.5-6.0) x10^6/uL Hgb 13.7 L (14.0-18.0) g/dL Hct 40.0 (40.0-52.0) % MCV 88.9 (78.0-93.0) fL MCH 30.4 (26.0-32.0) pg MCHC 34.3 (32.0-36.0) g/dL RDW Coeff of Rogelio 14.5 (10.0-15.0) % Plt Count 242 (130-400) x10^3/uL Neut % (Auto) 72.3 (50.0-80.0) % Lymph % (Auto) 17.4 L (25.0-50.0) % Mccracken % (Auto) 8.0 (2.0-11.0) % Eos % (Auto) 1.8 (0.0-4.0) % Baso % (Auto) 0.5 (0.2-1.2) % PT 32.0 H D (10.0-12.8) SEC INR 2.8 (2.0-3.5) Sodium 140 (69-191) mmol/L Potassium 4.4 (1.5-9.9) mmol/L Chloride 104 (54-184) mmol/L Carbon Dioxide 25 (21-32) mmol/L Anion Gap 15.4 (10-20) mmol/L BUN 14 (7-18) mg/dL Creatinine 1.1 (0.70-1.30) mg/dL Est Cr Clr Drug Dosing TNP Estimated GFR (MDRD) > 60 Glucose 104 (74-106) mg/dL Calcium 8.7 (8.5-10.1) mg/dL Corrected Calcium 9.18 (8.5-10.1) mg/dL Phosphorus 3.5 (2.6-4.7) mg/dL Magnesium 1.6 L (1.8-2.4) mg/dL Total Bilirubin 0.4 (0.2-1.0) mg/dL AST 19 (15-37) U/L ALT 27 (16-63) U/L Alkaline Phosphatase 72 (46-116) U/L Troponin I < 0.017 (<=0.056) ng/mL NT-Pro-B Natriuret Pep 283 (<=450) pg/mL Total Protein 6.6 (6.4-8.2) g/dL Albumin 3.4 (3.4-5.0) g/dL Globulin 3.2 Albumin/Globulin Ratio 1.06 Meds: Medications Generic Name Dose Route Start Last Admin Trade Name Freq PRN Reason Stop Dose Admin Sodium Chloride 10 ml 06/02/19 13:53 Saline Flush FLUSH ASDIRECTED PRN Keep Vein Open Departure - Departure Time of Disposition: 15:16 Disposition: Home, Self-Care 01 Clinical Impression: Atrial fibrillation, Palpitations - Discharge Information Instructions: Palpitations, [id number] Referrals: Alejo Parmar MD [Primary Care Provider] - Additional Instructions: Home to rest. Continue with current medications. Follow-up with associate editor/PCP as needed. - Problem List Review Problem List Initiated/Reviewed/Updated: Yes - My Orders Last 24 Hours: My Active Orders 06/02/19 13:53 EKG Documentation Completion [RC] STAT Sodium Chloride 0.9% [Saline Flush] 10 ml FLUSH ASDIRECTED PRN Peripheral IV Insertion Adult [OM.PC] Routine - Assessment/Plan Last 24 Hours: My Active Orders 06/02/19 13:53 EKG Documentation Completion [RC] STAT Sodium Chloride 0.9% [Saline Flush] 10 ml FLUSH ASDIRECTED PRN Peripheral IV Insertion Adult [OM.PC] Routine Plan: Pt. heart rate was in the 70-80 range during his stay in ER. Rate was intermittent, but always less than 100. Pt. was no longer experiencing any palpitations, so decision was made to discharge the patient. He will return if he has any persistent tachycardia, palpitations, chest pain, or shortness of breath. Pt. has been intolerant to beta blockers in the past, so we will not increase his Toprol at this point. This will need to be addressed with cardiology and possibly revisited sooner if he is continuing to have symptoms. All questions were answered.
[2019-06-02 16:12] VITALS: BP 138/78; PULSE 70
== END 2019-06-02 15:05 | disposition home or self-care (01) ==
LOC: VM.ED 13:51
DX: I48.91 Unspecified atrial fibrillation (principal); I25.10 Atherosclerotic heart disease of native coronary artery without angina pectoris; I10 Essential (primary) hypertension; I25.2 Old myocardial infarction; K21.9 Gastro-esophageal reflux disease without esophagitis; J44.9 Chronic obstructive pulmonary disease, unspecified; Z88.0 Allergy status to penicillin; Z95.5 Presence of coronary angioplasty implant and graft; Z88.8 Allergy status to other drugs, medicaments and biological substances; Z91.030 Bee allergy status; Z79.82 Long term (current) use of aspirin; Z79.899 Other long term (current) drug therapy
CPT/HCPCS: 36415; 80053; 83735; 83880; 84100; 84484; 85025; 85610; 93005; 93010; 99284-25; 99284-GF

== ENCOUNTER 2019-06-05 09:55 | Observation (INO) | payer MEDICARE, OTHER ==
--- NOTE | 2019-06-05 10:12 | EDM.PDOC ---
ED HPI GENERAL MEDICAL PROBLEM - General Chief Complaint: Cardiovascular Problem Stated Complaint: A FIB Time Seen by Provider: 06/05/19 10:12 Source of Information: Reports: Patient History Limitations: Reports: No Limitations - History of Present Illness INITIAL COMMENTS - FREE TEXT/NARRATIVE: Patient was not feeling right. It did seem like he had uncontrolled A. fib. I initially gave him a dose of Cardizem and that helped. However it was not until we got another dose of Lopressor 5 mg IV that he started having resolution of his symptoms and was able to walk the halls without feeling dizzy. I did put him into observation however after I reassessed him hours later he was ready to go home. 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 I also called the pacemaker team in [place]. I did look at the reports from the remote assessment done this afternoon. Dr. Jha had signed off on it. I do want him to see Dr. Jha or his nurse practitioner. No chest pain. No longer having any dizziness.. Please make this as my admitting H&P for his observation status. Onset: Today Duration: Improving Location: Reports: Generalized 0 Pain Score (Numeric/FACES): 4 - Related Data Allergies Allergy/AdvReac Type Severity Reaction Status Date / Time atorvastatin calcium Allergy Other Verified 06/05/19 10:26 [From Lipitor] gluten Allergy Diarrhea Verified 06/05/19 10:26 nitroglycerin Allergy Hives Verified 06/05/19 10:26 [From Nitro-Dur] Penicillins AdvReac Vomiting Verified 06/05/19 10:26 venom-honey bee AdvReac Vomiting Verified 06/05/19 10:26 [bee venom (honey bee)] Home Meds: Home Meds Isosorbide Mononitrate [Imdur] 15 mg PO DAILY 12/17/13 [History] Melatonin 5 mg PO BEDTIME 12/17/13 [History] Multivitamin [Multi-Vitamin Daily] 1 tab PO DAILY 12/17/13 [History] Roll-3/DHA/Epa/Fish Oil [Roll-3 Fish Oil 1,000 MG Sfgl] 1,000 mg PO TID [History] Tamsulosin HCl 0.4 mg PO BEDTIME 12/17/13 [History] Pravastatin [Pravachol] 20 mg PO BEDTIME 11/12/15 [History] Aspirin [Halfprin] 81 mg PO DAILY 10/13/18 [History] Clindamycin Phosphate [Cleocin T] 0.5 gm TP BID 10/13/18 [History] diphenhydrAMINE [Benadryl] 25 mg PO BEDTIME 10/13/18 [History] Warfarin Sodium [Jantoven] 7.5 mg PO MOWEFR 02/09/19 [History] Lisinopril [Prinivil] 5 mg PO DAILY tablet 05/22/19 [Rx] Metoprolol Succinate [Toprol XL 50mg] 100 mg PO DAILY #0 tab.er 05/22/19 [Rx] Omeprazole 20 mg PO DAILY@0700 cap.cr 05/22/19 [Rx] Pharmacy Consult [Consult to Pharmacy] 1 each .XX ASDIRECTED each 05/22/19 [Rx] Warfarin [Coumadin] 7.5 mg PO MoWeFr@1999 tablet 05/22/19 [Rx] Warfarin [Coumadin] 10 mg PO SUTUTHSA 05/22/19 [History] Pantoprazole Sodium [Protonix] 40 mg PO DAILY 06/05/19 [History] Warfarin [Coumadin] 7.5 mg PO SuTuThSa@199906/05/19 [History] Warfarin [Coumadin] 10 mg PO MOWEFR@20 06/05/19 [History] Past Medical History HEENT History: Reports: Cataract, Hard of Hearing, Other (See Below) Other HEENT History: post vitreous detachment. presbyopia Cardiovascular History: Reports: CAD, High Cholesterol, Hypertension, [place], Pacemaker, Other (See Below) Other Cardiovascular History: first degree AV block Respiratory History: Reports: COPD, Sleep Apnea Gastrointestinal History: Reports: Celiac Disease, GERD, Hiatal Hernia Other Gastrointestinal History: hx of barretts Genitourinary History: Reports: BPH Other Psychiatric History: insomnia Dermatologic History: Reports: Other (See Below) Other Dermatologic History: rosacea - Infectious Disease History Infectious Disease History: Reports: Chicken Pox - Past Surgical History HEENT Surgical History: Reports: Cataract Surgery, Tonsillectomy Cardiovascular Surgical History: Reports: Coronary Artery Stent, Other (See Below) Other Cardiovascular Surgeries/Procedures: coronary angioplasty GI Surgical History: Reports: Colonoscopy Musculoskeletal Surgical History: Reports: Shoulder Surgery Social & Family History - Family History Family Medical History: Noncontributory - Caffeine Use Caffeine Use: Reports: Coffee, Soda ED ROS GENERAL - Review of Systems Review Of Systems: ROS reveals no pertinent complaints other than HPI. ED EXAM, GENERAL - Physical Exam Exam: See Below Exam Limited By: No Limitations General Appearance: Alert, Mild Distress, Moderate Distress Nose: Normal Inspection Throat/Mouth: Normal Inspection Head: Atraumatic Neck: Normal Inspection Respiratory/Chest: No Respiratory Distress, Lungs Clear Cardiovascular: No Murmur, Irregularly Irregular GI/Abdominal: Normal Bowel Sounds, Soft Neurological: Alert, Oriented Psychiatric: Normal Affect, Normal Mood Course - Vital Signs Last Recorded V/S: Last Vital Signs Temp 36.6 C 06/05/19 14:00 Pulse 70 06/05/19 15:14 Resp 16 06/05/19 11:52 BP 162/79 H 06/05/19 15:14 Pulse Ox 99 06/05/19 14:00 - Orders/Labs/Meds Orders: Medication Orders Aspirin (Halfprin) 81 mg PO DAILY [facility] Diphenhydramine HCl (Benadryl) 25 mg PO BEDTIME [facility] Isosorbide Mononitrate (Imdur) 15 mg PO DAILY [facility] Lisinopril (Prinivil) 5 mg PO DAILY [facility] Melatonin (Melatonin) 6 mg PO BEDTIME [facility] Metoprolol Succinate (Toprol Xl) 100 mg PO DAILY [facility] Multivitamins/Minerals (Thera M Plus) 1 tab PO DAILY [facility] Omeprazole (Omeprazole) 20 mg PO DAILY@0700 [facility] Pharmacy Consult (Consult To Pharmacy) 1 each .XX ASDIRECTED [facility] Simvastatin (Zocor) 10 mg PO BEDTIME [facility] Tamsulosin HCl (Flomax) 0.4 mg PO BEDTIME [facility] Labs: Laboratory Tests 06/05/19 06/05/19 06/05/19 Range/Units 10:31 10:40 10:40 WBC 5.1 (4.0-10.0) x10^3/uL RBC 4.28 L (4.5-6.0) x10^6/uL Hgb 13.0 L (14.0-18.0) g/dL Hct 38.0 L (40.0-52.0) % MCV 88.8 (78.0-93.0) fL MCH 30.4 (26.0-32.0) pg MCHC 34.2 (32.0-36.0) g/dL RDW Coeff of Rogelio 14.3 (10.0-15.0) % Plt Count 235 (130-400) x10^3/uL Neut % (Auto) 73.3 (50.0-80.0) % Lymph % (Auto) 16.0 L (25.0-50.0) % Dickson % (Auto) 8.0 (2.0-11.0) % Eos % (Auto) 2.1 (0.0-4.0) % Baso % (Auto) 0.6 (0.2-1.2) % PT (10.0-12.8) SEC INR (2.0-3.5) APTT (24.0-36.0) SEC Sodium 142 (69-191) mmol/L Potassium 3.8 (1.5-9.9) mmol/L Chloride 105 (54-184) mmol/L Carbon Dioxide 24 (21-32) mmol/L Anion Gap 16.8 (10-20) mmol/L BUN 13 (7-18) mg/dL Creatinine 0.7 (0.70-1.30) mg/dL Est Cr Clr Drug Dosing TNP Estimated GFR (MDRD) > 60 Glucose 116 H (74-106) mg/dL Calcium 8.3 L (8.5-10.1) mg/dL Corrected Calcium 8.94 (8.5-10.1) mg/dL Magnesium 1.6 L (1.8-2.4) mg/dL Total Bilirubin 0.4 (0.2-1.0) mg/dL AST 16 (15-37) U/L ALT 26 (16-63) U/L Alkaline Phosphatase 66 (46-116) U/L Troponin I < 0.017 (<=0.056) ng/mL NT-Pro-B Natriuret Pep 127 (<=450) pg/mL Total Protein 6.1 L (6.4-8.2) g/dL Albumin 3.2 L (3.4-5.0) g/dL Globulin 2.9 Albumin/Globulin Ratio 1.10 Urine Color Yellow (YELLOW) Urine Appearance Clear (CLEAR) Urine pH 6.0 (5.0-8.0) Ur Specific [place] <=1.005 Urine Protein Negative (NEGATIVE) mg/dL Urine Glucose (UA) Negative (NEGATIVE) mg/dL Urine Ketones Negative (NEGATIVE) mg/dL Urine Occult Blood Trace-intact H (NEGATIVE) Urine Nitrite Negative (NEGATIVE) Urine Bilirubin Negative (NEGATIVE) Urine Urobilinogen 0.2 (0.2) EU/dL Ur Leukocyte Esterase Negative (NEGATIVE) Urine RBC Not seen (NOT SEEN) /HPF Urine WBC 0-5 (NOT SEEN) /HPF Ur Squamous Epith Cells Rare (NEGATIVE) /HPF Urine Bacteria Not seen (NEGATIVE) /HPF Urine Mucus Rare H (NEGATIVE) /LPF 06/05/19 Range/Units 10:40 WBC (4.0-10.0) x10^3/uL RBC (4.5-6.0) x10^6/uL Hgb (14.0-18.0) g/dL Hct (40.0-52.0) % MCV (78.0-93.0) fL MCH (26.0-32.0) pg MCHC (32.0-36.0) g/dL RDW Coeff of Rogelio (10.0-15.0) % Plt Count (130-400) x10^3/uL Neut % (Auto) (50.0-80.0) % Lymph % (Auto) (25.0-50.0) % Dickson % (Auto) (2.0-11.0) % Eos % (Auto) (0.0-4.0) % Baso % (Auto) (0.2-1.2) % PT 28.3 H (10.0-12.8) SEC INR 2.5 (2.0-3.5) APTT 35.4 (24.0-36.0) SEC Sodium (69-191) mmol/L Potassium (1.5-9.9) mmol/L Chloride (54-184) mmol/L Carbon Dioxide (21-32) mmol/L Anion Gap (10-20) mmol/L BUN (7-18) mg/dL Creatinine (0.70-1.30) mg/dL Est Cr Clr Drug Dosing Estimated GFR (MDRD) Glucose (74-106) mg/dL Calcium (8.5-10.1) mg/dL Corrected Calcium (8.5-10.1) mg/dL Magnesium (1.8-2.4) mg/dL Total Bilirubin (0.2-1.0) mg/dL AST (15-37) U/L ALT (16-63) U/L Alkaline Phosphatase (46-116) U/L Troponin I (<=0.056) ng/mL NT-Pro-B Natriuret Pep (<=450) pg/mL Total Protein (6.4-8.2) g/dL Albumin (3.4-5.0) g/dL Globulin Albumin/Globulin Ratio Urine Color (YELLOW) Urine Appearance (CLEAR) Urine pH (5.0-8.0) Ur Specific [place] Urine Protein (NEGATIVE) mg/dL Urine Glucose (UA) (NEGATIVE) mg/dL Urine Ketones (NEGATIVE) mg/dL Urine Occult Blood (NEGATIVE) Urine Nitrite (NEGATIVE) Urine Bilirubin (NEGATIVE) Urine Urobilinogen (0.2) EU/dL Ur Leukocyte Esterase (NEGATIVE) Urine RBC (NOT SEEN) /HPF Urine WBC (NOT SEEN) /HPF Ur Squamous Epith Cells (NEGATIVE) /HPF Urine Bacteria (NEGATIVE) /HPF Urine Mucus (NEGATIVE) /LPF Meds: Medications Generic Name Dose Route Start Last Admin Trade Name Freq PRN Reason Stop Dose Admin Aspirin 81 mg 06/06/19 08:00 Halfprin PO DAILY [facility] Diphenhydramine HCl 25 mg 06/05/19 20:00 Benadryl PO BEDTIME [facility] Isosorbide Mononitrate 15 mg 06/06/19 08:00 Imdur PO DAILY [facility] Lisinopril 5 mg 06/06/19 08:00 Prinivil PO DAILY [facility] Melatonin 6 mg 06/05/19 20:00 Melatonin PO BEDTIME [facility] Metoprolol Succinate 100 mg 06/06/19 08:00 Toprol Xl PO DAILY [facility] Multivitamins/Minerals 1 tab 06/06/19 08:00 Thera M Plus PO DAILY [facility] Omeprazole 20 mg 06/06/19 07:00 Omeprazole PO DAILY@0700 [facility] Pharmacy Consult 1 each 06/05/19 12:45 Consult To Pharmacy .XX ASDIRECTED [facility] Simvastatin 10 mg 06/05/19 20:00 Zocor PO BEDTIME [facility] Tamsulosin HCl 0.4 mg 06/05/19 20:00 Flomax PO BEDTIME [facility] Discontinued Medications Generic Name Dose Route Start Last Admin Trade Name Freq PRN Reason Stop Dose Admin Diltiazem HCl 20 mg 06/05/19 10:23 06/05/19 10:34 Cardizem IVPUSH 06/05/19 10:24 20 mg ONETIME ONE Administration Sodium Chloride 500 mls @ 999 mls/hr 06/05/19 11:25 06/05/19 11:45 Normal Saline IV 06/05/19 11:55 999 mls/hr .BOLUS ONE Administration Metoprolol Tartrate 5 mg 06/05/19 15:00 06/05/19 15:14 Lopressor IVPUSH 06/05/19 15:01 5 mg ONETIME ONE Administration Non-Formulary Medication 5 mg 06/05/19 20:00 Melatonin [Melatonin] PO BEDTIME [facility] Pharmacy Consult 1 each 06/05/19 12:00 Consult To Pharmacy .XX ASDIRECTED [facility] Warfarin Sodium 10 mg 06/05/19 14:00 06/05/19 14:21 Coumadin PO 06/05/19 14:01 10 mg ONETIME ONE Administration Departure - Departure Time of Disposition: 11:42 Disposition: Refer to Observation Condition: Fair Clinical Impression: Paroxysmal A-fib, Dizziness
[2019-06-05] MEDS: Diltiazem 50 MG/10 ML SDV IVPUSH ONE (10:34)
[2019-06-05 11:18] LABS: CHLORIDE,CL 105 mmol/L (54-184); SODIUM,NA 142 mmol/L (69-191)
[2019-06-05 11:22] LABS: ANION GAP 16.8 mmol/L (10-20)
[2019-06-05] MEDS: Sodium Chloride 0.9% 500 ML IV ONE (11:45)
[2019-06-05] MEDS: Warfarin 5 MG Tab PO ONE (14:21)
[2019-06-05] MEDS: Metoprolol Tartrate 5 MG/5 ML SDV IVPUSH ONE (15:14)
--- NOTE | 2019-06-05 18:03 | PCM.DCSUM1 ---
Discharge Summary - Hospital Course Brief History: Observation status for palpitations. EKG showed uncontrolled A. fib RVR this did resolve with cardiac exam and Lopressor IV. Diagnosis: Stroke: No - Discharge Data Discharge Date: 06/05/19 Discharge Disposition: Home, Self-Care 01 Condition: Good - Referral to Home Health Primary Care Physician: Alejo Parmar MD - Patient Summary/Data Hospital Course: The patient was kept on telemetry today and also was challenged by walking in the halls and he did pass without any signs of dizziness or ataxia. His heart rate did return back to normal and out of RVR. He did respond to Cardizem and Lopressor. I do want him to make an appointment with his project coach or his nurse practitioner. - Patient Instructions Diet: Heart Healthy Diet Driving: Do Not Drive - Discharge Plan *PRESCRIPTION DRUG MONITORING PROGRAM REVIEWED*: Not Applicable *COPY OF PRESCRIPTION DRUG MONITORING REPORT IN PATIENT ADEEL: Not Applicable Home Medications: Home Meds Isosorbide Mononitrate [Imdur] 15 mg PO DAILY 12/17/13 [History] Melatonin 5 mg PO BEDTIME 12/17/13 [History] Multivitamin [Multi-Vitamin Daily] 1 tab PO DAILY 12/17/13 [History] [place]-3/DHA/Epa/Fish Oil [[place]-3 Fish Oil 1,000 MG Sfgl] 1,000 mg PO TID [History] Tamsulosin HCl 0.4 mg PO BEDTIME 12/17/13 [History] Pravastatin [Pravachol] 20 mg PO BEDTIME 06/13/15 [History] Aspirin [Halfprin] 81 mg PO DAILY 10/13/18 [History] Clindamycin Phosphate [Cleocin T] 0.5 gm TP BID 10/13/18 [History] diphenhydrAMINE [Benadryl] 25 mg PO BEDTIME 10/13/18 [History] Warfarin Sodium [Jantoven] 7.5 mg PO MOWEFR 02/09/19 [History] Lisinopril [Prinivil] 5 mg PO DAILY tablet 05/22/19 [Rx] Metoprolol Succinate [Toprol XL 50mg] 100 mg PO DAILY #0 tab.er 05/22/19 [Rx] Omeprazole 20 mg PO DAILY@0700 cap.cr 05/22/19 [Rx] Pharmacy Consult [Consult to Pharmacy] 1 each .XX ASDIRECTED each 05/22/19 [Rx] Warfarin [Coumadin] 7.5 mg PO MoWeFr@1999 tablet 05/22/19 [Rx] Warfarin [Coumadin] 10 mg PO SUTUTHSA 05/22/19 [History] Pantoprazole Sodium [Protonix] 40 mg PO DAILY 06/05/19 [History] Warfarin [Coumadin] 7.5 mg PO SuTuThSa@199906/05/19 [History] Warfarin [Coumadin] 10 mg PO MOWEFR@06/05/19 [History] Patient Handouts: Atrial Fibrillation, [id number] Forms: ED Department Discharge Referrals: Alejo Parmar MD [Primary Care Provider] - - Discharge Summary/Plan Comment DC Time >30 min.: No - General Info Functional Status: Reports: Pain Controlled - Review of Systems General: Reports: No Symptoms Pulmonary: Reports: No Symptoms Cardiovascular: Reports: No Symptoms Musculoskeletal: Reports: No Symptoms - Patient Data Vitals - Most Recent: Last Vital Signs Temp 36.6 C 06/05/19 14:00 Pulse 70 06/05/19 15:14 Resp 16 06/05/19 11:52 BP 162/79 H 06/05/19 15:14 Pulse Ox 99 06/05/19 14:00 Weight - Most Recent: 75.432 kg I&O - Last 24 hours: Intake & Output 06/05/19 06/05/19 06/05/19 06:59 14:59 22:59 Intake Total 420 Balance 420 Lab Results - Last 24 hrs: Laboratory Results - last 24 hr 06/05/19 06/05/19 06/05/19 Range/Units 10:31 10:40 10:40 WBC 5.1 (4.0-10.0) x10^3/uL RBC 4.28 L (4.5-6.0) x10^6/uL Hgb 13.0 L (14.0-18.0) g/dL Hct 38.0 L (40.0-52.0) % MCV 88.8 (78.0-93.0) fL MCH 30.4 (26.0-32.0) pg MCHC 34.2 (32.0-36.0) g/dL RDW Coeff of Rogelio 14.3 (10.0-15.0) % Plt Count 235 (130-400) x10^3/uL Neut % (Auto) 73.3 (50.0-80.0) % Lymph % (Auto) 16.0 L (25.0-50.0) % [place] % (Auto) 8.0 (2.0-11.0) % Eos % (Auto) 2.1 (0.0-4.0) % Baso % (Auto) 0.6 (0.2-1.2) % PT (10.0-12.8) SEC INR (2.0-3.5) APTT (24.0-36.0) SEC Sodium 142 (69-191) mmol/L Potassium 3.8 (1.5-9.9) mmol/L Chloride 105 (54-184) mmol/L Carbon Dioxide 24 (21-32) mmol/L Anion Gap 16.8 (10-20) mmol/L BUN 13 (7-18) mg/dL Creatinine 0.7 (0.70-1.30) mg/dL Est Cr Clr Drug Dosing TNP Estimated GFR (MDRD) > 60 Glucose 116 H (74-106) mg/dL Calcium 8.3 L (8.5-10.1) mg/dL Corrected Calcium 8.94 (8.5-10.1) mg/dL Magnesium 1.6 L (1.8-2.4) mg/dL Total Bilirubin 0.4 (0.2-1.0) mg/dL AST 16 (15-37) U/L ALT 26 (16-63) U/L Alkaline Phosphatase 66 (46-116) U/L Troponin I < 0.017 (<=0.056) ng/mL NT-Pro-B Natriuret Pep 127 (<=450) pg/mL Total Protein 6.1 L (6.4-8.2) g/dL Albumin 3.2 L (3.4-5.0) g/dL Globulin 2.9 Albumin/Globulin Ratio 1.10 Urine Color Yellow (YELLOW) Urine Appearance Clear (CLEAR) Urine pH 6.0 (5.0-8.0) Ur Specific [place] <=1.005 Urine Protein Negative (NEGATIVE) mg/dL Urine Glucose (UA) Negative (NEGATIVE) mg/dL Urine Ketones Negative (NEGATIVE) mg/dL Urine Occult Blood Trace-intact H (NEGATIVE) Urine Nitrite Negative (NEGATIVE) Urine Bilirubin Negative (NEGATIVE) Urine Urobilinogen 0.2 (0.2) EU/dL Ur Leukocyte Esterase Negative (NEGATIVE) Urine RBC Not seen (NOT SEEN) /HPF Urine WBC 0-5 (NOT SEEN) /HPF Ur Squamous Epith Cells Rare (NEGATIVE) /HPF Urine Bacteria Not seen (NEGATIVE) /HPF Urine Mucus Rare H (NEGATIVE) /LPF 06/05/19 Range/Units 10:40 WBC (4.0-10.0) x10^3/uL RBC (4.5-6.0) x10^6/uL Hgb (14.0-18.0) g/dL Hct (40.0-52.0) % MCV (78.0-93.0) fL MCH (26.0-32.0) pg MCHC (32.0-36.0) g/dL RDW Coeff of Rogelio (10.0-15.0) % Plt Count (130-400) x10^3/uL Neut % (Auto) (50.0-80.0) % Lymph % (Auto) (25.0-50.0) % [place] % (Auto) (2.0-11.0) % Eos % (Auto) (0.0-4.0) % Baso % (Auto) (0.2-1.2) % PT 28.3 H (10.0-12.8) SEC INR 2.5 (2.0-3.5) APTT 35.4 (24.0-36.0) SEC Sodium (69-191) mmol/L Potassium (1.5-9.9) mmol/L Chloride (54-184) mmol/L Carbon Dioxide (21-32) mmol/L Anion Gap (10-20) mmol/L BUN (7-18) mg/dL Creatinine (0.70-1.30) mg/dL Est Cr Clr Drug Dosing Estimated GFR (MDRD) Glucose (74-106) mg/dL Calcium (8.5-10.1) mg/dL Corrected Calcium (8.5-10.1) mg/dL Magnesium (1.8-2.4) mg/dL Total Bilirubin (0.2-1.0) mg/dL AST (15-37) U/L ALT (16-63) U/L Alkaline Phosphatase (46-116) U/L Troponin I (<=0.056) ng/mL NT-Pro-B Natriuret Pep (<=450) pg/mL Total Protein (6.4-8.2) g/dL Albumin (3.4-5.0) g/dL Globulin Albumin/Globulin Ratio Urine Color (YELLOW) Urine Appearance (CLEAR) Urine pH (5.0-8.0) Ur Specific [place] Urine Protein (NEGATIVE) mg/dL Urine Glucose (UA) (NEGATIVE) mg/dL Urine Ketones (NEGATIVE) mg/dL Urine Occult Blood (NEGATIVE) Urine Nitrite (NEGATIVE) Urine Bilirubin (NEGATIVE) Urine Urobilinogen (0.2) EU/dL Ur Leukocyte Esterase (NEGATIVE) Urine RBC (NOT SEEN) /HPF Urine WBC (NOT SEEN) /HPF Ur Squamous Epith Cells (NEGATIVE) /HPF Urine Bacteria (NEGATIVE) /HPF Urine Mucus (NEGATIVE) /LPF Med Orders - Current: Current Medications Aspirin (Halfprin) 81 mg PO DAILY [facility] Diphenhydramine HCl (Benadryl) 25 mg PO BEDTIME [facility] Isosorbide Mononitrate (Imdur) 15 mg PO DAILY [facility] Lisinopril (Prinivil) 5 mg PO DAILY [facility] Melatonin (Melatonin) 6 mg PO BEDTIME [facility] Metoprolol Succinate (Toprol Xl) 100 mg PO DAILY [facility] Multivitamins/Minerals (Thera M Plus) 1 tab PO DAILY [facility] Omeprazole (Omeprazole) 20 mg PO DAILY@0700 [facility] Pharmacy Consult (Consult To Pharmacy) 1 each .XX ASDIRECTED [facility] Simvastatin (Zocor) 10 mg PO BEDTIME [facility] Tamsulosin HCl (Flomax) 0.4 mg PO BEDTIME [facility] Discontinued Medications Diltiazem HCl (Cardizem) 20 mg IVPUSH ONETIME ONE Stop: 06/05/19 10:24 Last Admin: 06/05/19 10:34 Dose: 20 mg Sodium Chloride (Normal Saline) 500 mls @ 999 mls/hr IV .BOLUS ONE Stop: 06/05/19 11:55 Last Admin: 06/05/19 11:45 Dose: 999 mls/hr Metoprolol Tartrate (Lopressor) 5 mg IVPUSH ONETIME ONE Stop: 06/05/19 15:01 Last Admin: 06/05/19 15:14 Dose: 5 mg Non-Formulary Medication (Melatonin [Melatonin]) 5 mg PO BEDTIME [facility] Pharmacy Consult (Consult To Pharmacy) 1 each .XX ASDIRECTED [facility] Warfarin Sodium (Coumadin) 10 mg PO ONETIME ONE Stop: 06/05/19 14:01 Last Admin: 06/05/19 14:21 Dose: 10 mg
[2019-06-05 18:26] VITALS: BP 157/78; PULSE 86
[2019-06-05] MEDS ORDERED: Non-Formulary Medication 1 Each (Melatonin [Melatonin] 5 MG) PO SCH (20:00)
[2019-06-05] MEDS ORDERED: Simvastatin 10 MG Tab PO SCH (20:00)
[2019-06-05] MEDS ORDERED: diphenhydrAMINE 25 MG Cap PO SCH (20:00)
[2019-06-05] MEDS ORDERED: Tamsulosin 0.4 MG Cap.ER PO SCH (20:00)
[2019-06-05] MEDS ORDERED: Melatonin 3 MG Tab PO SCH (20:00)
[2019-06-06] MEDS ORDERED: Omeprazole 20 MG Cap.CR PO SCH (07:00)
[2019-06-06] MEDS ORDERED: Multivitamins with Iron/Calcium/Folic Acid/Minerals Tab PO SCH (08:00)
[2019-06-06] MEDS ORDERED: Lisinopril 5 MG Tab PO SCH (08:00)
[2019-06-06] MEDS ORDERED: Isosorbide Mononitrate 30 MG Tab.ER PO SCH (08:00)
[2019-06-06] MEDS ORDERED: Aspirin 81 MG Tab.EC PO SCH (08:00)
[2019-06-06] MEDS ORDERED: Metoprolol Succinate 50 MG Tab.ER PO SCH (08:00)
== END 2019-06-05 18:20 | disposition home or self-care (01) ==
LOC: VM.ED 09:55 → VM.MS 11:44
PROVIDERS: ADMIT Physician Assistant; ATTEND Physician Assistant
DX: I48.0 Paroxysmal atrial fibrillation (principal); I25.10 Atherosclerotic heart disease of native coronary artery without angina pectoris; E78.00 Pure hypercholesterolemia, unspecified; I10 Essential (primary) hypertension; J44.9 Chronic obstructive pulmonary disease, unspecified; K21.9 Gastro-esophageal reflux disease without esophagitis; N40.0 Benign prostatic hyperplasia without lower urinary tract symptoms; Z79.899 Other long term (current) drug therapy; Z79.82 Long term (current) use of aspirin; Z79.01 Long term (current) use of anticoagulants; Z88.8 Allergy status to other drugs, medicaments and biological substances; Z91.018 Allergy to other foods; Z88.0 Allergy status to penicillin; Z91.030 Bee allergy status
CPT/HCPCS: 36415; 80053; 81001; 83735; 83880; 84484; 85025; 85610; 85730; 93005; 96374; 96375; 99236; 99285-25; A9270-GY; G0378; J3490; J7030

== ENCOUNTER 2020-03-09 08:48 | Emergency (ER) | payer MEDICARE, OTHER ==
[2020-03-09] MEDS ORDERED: Sodium Chloride 0.9% 10 ML Syringe FLUSH PRN (09:22)
[2020-03-09 10:01] LABS: ANION GAP 11.6 mmol/L (10-20); CHLORIDE,CL 100 mmol/L (98-107); SODIUM,NA 135 mmol/L (136-145)
[2020-03-09 10:02] LABS: PTT,PARTIAL THROMBOPLSTIN TIME 44.2 SEC (25.6-32.8)
--- NOTE | 2020-03-09 10:23 | EDM.PDOC ---
ED HPI GENERAL MEDICAL PROBLEM - General Chief Complaint: Lower Extremity Injury/Pain Stated Complaint: LUMP IN HIP AREA LOTS OF PAIN Time Seen by Provider: 03/09/20 09:15 Source of Information: Reports: Patient - History of Present Illness INITIAL COMMENTS - FREE TEXT/NARRATIVE: Ambrose is a 74 y/o male who is brought to the ER by a family member for a painful area on his left buttock/hip region. He reports that yesterday he was sitting in his recliner and he felt some pain, but then this AM he noticed a large bump on his left buttock. He denies falling or bumping the area. He has not had a fever. He reports the pain is worse when he moves. He does take anticoagulants for atrial fib. Left Buttock Pain Score (Numeric/FACES): 7 - Related Data Allergies Allergy/AdvReac Type Severity Reaction Status Date / Time atorvastatin calcium Allergy Other Verified 03/09/20 09:16 [From Lipitor] gluten Allergy Diarrhea Verified 03/09/20 09:16 nitroglycerin Allergy Hives Verified 03/09/20 09:16 [From Nitro-Dur] Penicillins AdvReac Vomiting Verified 03/09/20 09:16 venom-honey bee AdvReac Vomiting Verified 03/09/20 09:16 [bee venom (honey bee)] Home Meds: Home Meds Isosorbide Mononitrate [Imdur] 15 mg PO DAILY 12/17/13 [History] Melatonin 5 mg PO BEDTIME 12/17/13 [History] Multivitamin [Multi-Vitamin Daily] 1 tab PO DAILY 12/17/13 [History] [place]-3/DHA/Epa/Fish Oil [[place]-3 Fish Oil 1,000 MG Sfgl] 1,000 mg PO TID 12/17/13 [History] Tamsulosin HCl 0.4 mg PO BEDTIME 12/17/13 [History] Pravastatin [Pravachol] 20 mg PO BEDTIME 06/13/15 [History] Aspirin [Halfprin] 81 mg PO DAILY 10/13/18 [History] Clindamycin Phosphate [Cleocin T] 0.5 gm TP BID 10/13/18 [History] diphenhydrAMINE [Benadryl] 25 mg PO BEDTIME 10/13/18 [History] Pantoprazole Sodium [Protonix] 40 mg PO DAILY 06/05/19 [History] Warfarin [Coumadin] 7.5 mg PO SuTuThSa@199906/05/19 [History] Warfarin [Coumadin] 10 mg PO MOWEFR@06/05/19 [History] Sotalol [Betapace, Sorine] 80 mg PO BID 06/17/19 [History] Baclofen 10 mg PO TID 03/09/20 [History] methylPREDNISolone [Medrol Dose Pack] 4 mg PO ASDIRECTED 03/09/20 [History] Past Medical History HEENT History: Reports: Cataract, Hard of Hearing, Other (See Below) Other HEENT History: post vitreous detachment. presbyopia Cardiovascular History: Reports: Afib, CAD, High Cholesterol, Hypertension, AR, Pacemaker, Other (See Below) Other Cardiovascular History: first degree AV block Respiratory History: Reports: COPD, Sleep Apnea Gastrointestinal History: Reports: Celiac Disease, GERD, Hiatal Hernia Other Gastrointestinal History: hx of barretts Genitourinary History: Reports: BPH Other Psychiatric History: insomnia Dermatologic History: Reports: Other (See Below) Other Dermatologic History: rosacea - Infectious Disease History Infectious Disease History: Reports: Chicken Pox - Past Surgical History HEENT Surgical History: Reports: Cataract Surgery, Tonsillectomy Cardiovascular Surgical History: Reports: Coronary Artery Stent, Other (See Below) Other Cardiovascular Surgeries/Procedures: coronary angioplasty GI Surgical History: Reports: Colonoscopy Musculoskeletal Surgical History: Reports: Shoulder Surgery Social & Family History - Family History Family Medical History: Noncontributory - Tobacco Use Smoking Status *Q: Unknown Ever Smoked - Caffeine Use Caffeine Use: Reports: Coffee, Soda Review of Systems - Review of Systems Review Of Systems: See Below Constitutional: Reports: No Symptoms Eyes: Reports: No Symptoms Ears: Reports: No Symptoms, Previous Injury Mouth/Throat: Reports: No Symptoms Respiratory: Reports: No Symptoms Cardiovascular: Reports: No Symptoms GI/Abdominal: Reports: No Symptoms Genitourinary: Reports: No Symptoms Musculoskeletal: Reports: Other (Left buttock/hip pain) Skin: Reports: No Symptoms Neurological: Reports: No Symptoms Psychiatric: Reports: No Symptoms ED EXAM, GENERAL - Physical Exam Exam: See Below Exam Limited By: No Limitations General Appearance: Alert, WD/WN, No Apparent Distress (Elderly male.) Eye Exam: Bilateral Eye: PERRL Ears: Normal External Exam, Hearing Grossly Normal Nose: Normal Inspection, Normal Mucosa Throat/Mouth: Normal Inspection, Normal Lips, Normal Teeth, Normal Voice Head: Atraumatic, Normocephalic Neck: Normal Inspection, Supple, Non-Tender Respiratory/Chest: No Respiratory Distress, Lungs Clear, Normal Breath Sounds, Chest Non-Tender Cardiovascular: Normal Peripheral Pulses, Regular Rate, Rhythm, No Edema GI/Abdominal: Normal Bowel Sounds, Soft, Non-Tender (Male) Exam: Deferred Rectal (Males) Exam: Deferred Back Exam: Normal Inspection Extremities: Other (Note large firm, swollen area over left buttock/hip region, no erythema, brusing, or fluctance noted on exam.) Neurological: Alert, Oriented, CN II-XII Intact, Normal Cognition Psychiatric: Normal Affect, Normal Mood Skin Exam: Warm, Dry, Intact, Normal Color Lymphatic: No Adenopathy Course - Vital Signs Text/Narrative:: The patient was see by 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 Labs ordered. Pelvis CT w ordered. He was offered pain meds, but declines at this time. 1135 CT results reviewed. Note Intramuscular hematoma of the left gluteus myrna/medius muscles. Results discussed with patient. When asked if he had been eating fresh green vegetables he said he had changed his diet a bit with the availability of fresh garden produce. Will have him hold his Coumadin until further notice and have him follow up with his PCP and Coumadin clinic. Patient and his family member were given instructions and he left the ER in stable condition. Last Recorded V/S: Last Vital Signs Temp 36.1 C 03/09/20 08:55 Pulse 71 03/09/20 08:55 Resp 18 03/09/20 08:55 BP 187/100 H 03/09/20 08:55 Pulse Ox 97 03/09/20 08:55 - Orders/Labs/Meds Orders: Active Orders 24 hr Category Date Time Status Sodium Chloride 0.9% [Saline Flush] Med 03/09/20 09:22 Active 10 ml FLUSH ASDIRECTED PRN Saline Lock Insert [OM.PC] Stat Oth 03/09/20 09:23 Ordered Medication Orders Sodium Chloride (Saline Flush) 10 ml FLUSH ASDIRECTED PRN PRN Reason: Keep Vein Open Labs: Laboratory Tests 03/09/20 03/09/20 03/09/20 Range/Units 09:36 09:36 09:36 WBC 8.7 (4.0-10.0) x10^3/uL RBC 4.38 L (4.5-6.0) x10^6/uL Hgb 13.3 L (14.0-18.0) g/dL Hct 39.1 L (40.0-52.0) % MCV 89.3 (78.0-93.0) fL MCH 30.4 (26.0-32.0) pg MCHC 34.0 (32.0-36.0) g/dL RDW Coeff of Rogelio 14.9 (10.0-15.0) % Plt Count 247 (130-400) x10^3/uL Neut % (Auto) 80.5 H (50.0-80.0) % Lymph % (Auto) 9.4 L (25.0-50.0) % [place] % (Auto) 9.7 (2.0-11.0) % Eos % (Auto) 0.2 (0.0-4.0) % Baso % (Auto) 0.2 (0.2-1.2) % PT 67.1 H (9.5-12.3) SEC INR 6.8 H* (2.0-3.5) APTT 44.2 H (25.6-32.8) SEC Sodium 135 L (136-145) mmol/L Potassium 3.6 (3.5-5.1) mmol/L Chloride 100 (98-107) mmol/L Carbon Dioxide 27 (21-32) mmol/L Anion Gap 11.6 (10-20) mmol/L BUN 16 (7-18) mg/dL Creatinine 0.6 L (0.70-1.30) mg/dL Est Cr Clr Drug Dosing TNP Estimated GFR (MDRD) > 60 Glucose 132 H (74-106) mg/dL Calcium 8.4 L (8.5-10.1) mg/dL Meds: Medications Generic Name Dose Route Start Last Admin Trade Name Freq PRN Reason Stop Dose Admin Sodium Chloride 10 ml 03/09/20 09:22 Saline Flush FLUSH ASDIRECTED PRN Keep Vein Open Discontinued Medications Generic Name Dose Route Start Last Admin Trade Name Freq PRN Reason Stop Dose Admin Iopamidol 100 ml 08/08/20 10:31 Isovue-300 (61%) IVPUSH 03/09/20 10:32 ONETIME ONE - Radiology Interpretation Free Text/Narrative:: CT Abd/Pelvis W=note Intramuscular Hematoma of the left gluteus myrna and medius muscles. (See Radiology Report) Departure - Departure Time of Disposition: 11:36 Disposition: Home, Self-Care 01 Condition: Good Clinical Impression: Anticoagulation excessive, Atrial fibrillation, Intramuscular hematoma - Discharge Information *PRESCRIPTION DRUG MONITORING PROGRAM REVIEWED*: No *COPY OF PRESCRIPTION DRUG MONITORING REPORT IN PATIENT ADEEL: No Instructions: Atrial Fibrillation, Oxsi-mn-Wxam, Pain Medicine Instructions, [id number] Referrals: Alejo Parmar MD [Primary Care Provider] - Forms: ED Department Discharge Additional Instructions: -Hold your Coumadin until advised to resume by the Coumadin clinic. -Your PT/INR=6.8 today. This is way too high at this time, so this means your blood is very thin and you have an increased risk for bleeding or bruising. -Monitor for further bleeding or bruising and promptly report it to your PCP. -Apply cool packs to the area on your left buttock region. The bleeding that occurred into your muscle will need to reabsorb on it's own and this may take a few weeks. -Call the Coumadin Clinic on Wednesday and let them know you were in the ER and what your PT/INR value was. We have provided you with a copy. -Use pain meds as needed for comfort -Keep all follow up appts as previously scheduled. -Make an appt with Brandon Parmar MD for recheck by the end of the week or as instructed by the Coumadin Clinic -Return to the ER for any concerns Sepsis Event Note (ED) - Evaluation Sepsis Screening Result: No Definite Risk - Focused Exam Vital Signs: Vital Signs Temp Pulse Resp BP Pulse Ox 03/09/20 08:55 36.1 C 71 18 187/100 H 97 - My Orders Last 24 Hours: My Active Orders 03/09/20 09:22 Sodium Chloride 0.9% [Saline Flush] 10 ml FLUSH ASDIRECTED PRN 03/09/20 09:23 Saline Lock Insert [OM.PC] Stat - Assessment/Plan Last 24 Hours: My Active Orders 03/09/20 09:22 Sodium Chloride 0.9% [Saline Flush] 10 ml FLUSH ASDIRECTED PRN 03/09/20 09:23 Saline Lock Insert [OM.PC] Stat
[2020-03-09] MEDS ORDERED: Iopamidol 612 MG/ML 100 ML Bottle IVPUSH ONE (10:31)
--- NOTE | 2020-03-09 10:55 | CT ---
[id number] CT/CT Abdomen Pelvis W IV EXAM: CT Abdomen Pelvis W IV CLINICAL DATA: LARGE BUMP ON LEFT BUTTOCK/HIP REGION. COMPARISON STUDY: None. FINDINGS: Dependent atelectasis at the lung bases bilaterally. Cardiac conduction device. The liver, gallbladder, spleen, pancreas, adrenal glands and right kidney are unremarkable. Left kidney is markedly atrophic. Mild bilateral hydroureter without obstructing stone or other areas of obstruction identified, nonspecific. Circumferential wall thickening of the urinary bladder likely related chronic outlet obstruction in the setting of enlarged prostate. Scattered colonic diverticula without evidence of acute diverticulitis. Calcified lymph node in the right lower quadrant. No lymphadenopathy, free fluid, or pneumoperitoneum. Asymmetric prominence of the left gluteus myrna and medius suggestive of intramuscular hematoma. No evidence of active extravasation. Scattered changes of spondylosis the spine. No fracture or osseous lesion. Old right-sided rib fracture. IMPRESSION: 1. Asymmetric prominence of the left gluteus medius myrna and medius muscles suggestive of intramuscular hematoma. No evidence of active extravasation. Wyatt Cardenas DO 03/09/20 1054 Thank you for allowing us to participate in the care of your patient.
[2020-03-09 12:01] VITALS: BP 168/99; PULSE 78
== END 2020-03-09 11:57 | disposition home or self-care (01) ==
LOC: VM.ED 08:48
DX: M79.81 Nontraumatic hematoma of soft tissue (principal); I48.91 Unspecified atrial fibrillation; I10 Essential (primary) hypertension; E78.00 Pure hypercholesterolemia, unspecified; I25.10 Atherosclerotic heart disease of native coronary artery without angina pectoris; K21.9 Gastro-esophageal reflux disease without esophagitis; N40.0 Benign prostatic hyperplasia without lower urinary tract symptoms; Z90.89 Acquired absence of other organs; Z88.8 Allergy status to other drugs, medicaments and biological substances; Z88.0 Allergy status to penicillin; Z91.030 Bee allergy status; Z91.018 Allergy to other foods; Z79.899 Other long term (current) drug therapy; Z79.82 Long term (current) use of aspirin; Z79.01 Long term (current) use of anticoagulants
CPT/HCPCS: 74177; 80048; 85025; 85610; 85730; 99284; 99284-25

== ENCOUNTER 2020-03-23 20:24 | Emergency (ER) | payer MEDICARE, OTHER ==
--- NOTE | 2020-03-23 21:00 | EDM.PDOC ---
ED HPI GENERAL MEDICAL PROBLEM - General Chief Complaint: General Stated Complaint: LIGHT HEADED/DIZZY Time Seen by Provider: 03/23/20 20:34 Source of Information: Reports: Patient History Limitations: Reports: No Limitations - History of Present Illness INITIAL COMMENTS - FREE TEXT/NARRATIVE: Patient comes into the emergency department with concerns of dizziness. Patient states that he is currently working up chronic neck discomfort and malformation with a specialist and states that he sometimes has intermittent dizziness however today he became dizzy after he bent forward and tried to stand back up. He states that the dizziness was more significant he had this down there and wait a few minutes before proceeding for the dizziness he thought would cause him to pass out. Patient denies falling or continuous dizziness. The patient states it has been positional and has only been if he is going from the bent over position to the standing position. Patient denies any medication changes. He was on a medication greater than a week ago that did cause an abnormal high INR however they have been monitoring that closely and he states that it has come down and he is due to have his INR checked again on Wednesday. Patient denies any chest pain, shortness of breath, dizziness with rest, lightheadedness, change in vision, numbness or tingling, abnormal gait disturbance, abdominal discomfort, or peripheral edema. Patient states is been relatively healthy and has no other concerns or complaints. Patient also denies any COVID-19 symptoms or recent exposure that he is aware of. Onset: Sudden Quality: Reports: Other Severity: Mild Improves with: Reports: None Worsens with: Reports: None Context: Reports: Activity Associated Symptoms: Reports: No Other Symptoms - Related Data Allergies Allergy/AdvReac Type Severity Reaction Status Date / Time atorvastatin calcium Allergy Other Verified 03/23/20 20:47 [From Lipitor] gluten Allergy Diarrhea Verified 03/23/20 20:47 nitroglycerin Allergy Hives Verified 03/23/20 20:47 [From Nitro-Dur] Penicillins AdvReac Vomiting Verified 03/23/20 20:47 venom-honey bee AdvReac Vomiting Verified 03/23/20 20:47 [bee venom (honey bee)] Home Meds: Home Meds Isosorbide Mononitrate [Imdur] 15 mg PO DAILY 12/17/13 [History] Melatonin 5 mg PO BEDTIME 12/17/13 [History] Multivitamin [Multi-Vitamin Daily] 1 tab PO DAILY 12/17/13 [History] [place]-3/DHA/Epa/Fish Oil [[place]-3 Fish Oil 1,000 MG Sfgl] 1,000 mg PO TID 12/17/13 [History] Tamsulosin HCl 0.4 mg PO BEDTIME 12/17/13 [History] Pravastatin [Pravachol] 20 mg PO BEDTIME 06/13/15 [History] Aspirin [Halfprin] 81 mg PO DAILY 10/13/18 [History] Clindamycin Phosphate [Cleocin T] 0.5 gm TP BID 10/13/18 [History] diphenhydrAMINE [Benadryl] 25 mg PO BEDTIME 10/13/18 [History] Pantoprazole Sodium [Protonix] 40 mg PO DAILY 06/05/19 [History] Warfarin [Coumadin] 7.5 mg PO SuTuThSa@199906/05/19 [History] Warfarin [Coumadin] 10 mg PO MOWEFR@06/05/19 [History] Sotalol [Betapace, Sorine] 80 mg PO BID 06/17/19 [History] Baclofen 10 mg PO TID 03/09/20 [History] methylPREDNISolone [Medrol Dose Pack] 4 mg PO ASDIRECTED 03/09/20 [History] Past Medical History HEENT History: Reports: Cataract, Hard of Hearing, Other (See Below) Other HEENT History: post vitreous detachment. presbyopia Cardiovascular History: Reports: Afib, CAD, High Cholesterol, Hypertension, [place], Pacemaker, Other (See Below) Other Cardiovascular History: first degree AV block Respiratory History: Reports: COPD, Sleep Apnea Gastrointestinal History: Reports: Celiac Disease, GERD, Hiatal Hernia Other Gastrointestinal History: hx of barretts Genitourinary History: Reports: BPH Other Psychiatric History: insomnia Dermatologic History: Reports: Other (See Below) Other Dermatologic History: rosacea - Infectious Disease History Infectious Disease History: Reports: Chicken Pox - Past Surgical History HEENT Surgical History: Reports: Cataract Surgery, Tonsillectomy Cardiovascular Surgical History: Reports: Coronary Artery Stent, Other (See Below) Other Cardiovascular Surgeries/Procedures: coronary angioplasty GI Surgical History: Reports: Colonoscopy Musculoskeletal Surgical History: Reports: Shoulder Surgery Social & Family History - Family History Family Medical History: Noncontributory - Caffeine Use Caffeine Use: Reports: Coffee, Soda ED ROS GENERAL - Review of Systems Review Of Systems: Comprehensive ROS is negative, except as noted in HPI. Constitutional: Reports: No Symptoms HEENT: Reports: No Symptoms Respiratory: Reports: No Symptoms Cardiovascular: Reports: No Symptoms Endocrine: Reports: No Symptoms GI/Abdominal: Reports: No Symptoms : Reports: No Symptoms Musculoskeletal: Reports: No Symptoms Skin: Reports: No Symptoms Neurological: Reports: No Symptoms Psychiatric: Reports: No Symptoms Hematologic/Lymphatic: Reports: No Symptoms ED EXAM, GENERAL - Physical Exam Exam: See Below Exam Limited By: No Limitations General Appearance: Alert, WD/WN, No Apparent Distress Eye Exam: Bilateral Eye: EOMI, PERRL Ears: Other Ear Exam: Bilateral Ear: Auricle Normal, Canal Normal, TM Bulging Nose: Normal Inspection, Normal Mucosa, No Blood Throat/Mouth: Normal Lips Head: Atraumatic, Normocephalic Neck: Limited Range of Motion (chronic limited use ) Respiratory/Chest: No Respiratory Distress, Lungs Clear, Normal Breath Sounds, No Accessory Muscle Use, Chest Non-Tender Cardiovascular: Normal Peripheral Pulses, Regular Rate, Rhythm, No Edema, No Rub GI/Abdominal: Normal Bowel Sounds, Soft, Non-Tender, No Organomegaly, No Abnormal Bruit, No Mass Back Exam: Normal Inspection, Full Range of Motion Extremities: Normal Inspection, Limited Range of Motion (chronic limitation ) Neurological: Alert, Oriented Psychiatric: Normal Affect, Normal Mood Skin Exam: Warm, Dry, Intact, Normal Color Course - Vital Signs Last Recorded V/S: Last Vital Signs Temp 36.6 C 03/23/20 20:40 Pulse 62 03/23/20 20:40 Resp 16 03/23/20 20:40 BP 203/104 H 03/23/20 20:40 Pulse Ox 98 03/23/20 20:40 - Orders/Labs/Meds Labs: Laboratory Tests 03/23/20 03/23/20 03/23/20 Range/Units 21:02 21:16 21:16 WBC 4.6 (4.0-10.0) x10^3/uL RBC 3.80 L (4.5-6.0) x10^6/uL Hgb 11.7 L D (14.0-18.0) g/dL Hct 35.0 L (40.0-52.0) % MCV 92.1 (78.0-93.0) fL MCH 30.8 (26.0-32.0) pg MCHC 33.4 (32.0-36.0) g/dL RDW Coeff of Rogelio 16.2 H (10.0-15.0) % Plt Count 319 (130-400) x10^3/uL Neut % (Auto) 72.3 (50.0-80.0) % Lymph % (Auto) 16.1 L (25.0-50.0) % [place] % (Auto) 7.4 (2.0-11.0) % Eos % (Auto) 3.5 (0.0-4.0) % Baso % (Auto) 0.7 (0.2-1.2) % PT 36.2 H D (9.5-12.3) SEC INR 3.5 (2.0-3.5) Sodium (136-145) mmol/L Potassium (3.5-5.1) mmol/L Chloride (98-107) mmol/L Carbon Dioxide (21-32) mmol/L Anion Gap (10-20) mmol/L BUN (7-18) mg/dL Creatinine (0.70-1.30) mg/dL Est Cr Clr Drug Dosing mL/min Estimated GFR (MDRD) Glucose (74-106) mg/dL Calcium (8.5-10.1) mg/dL Corrected Calcium (8.5-10.1) mg/dL Total Bilirubin (0.2-1.0) mg/dL AST (15-37) U/L ALT (16-63) U/L Alkaline Phosphatase (46-116) U/L Total Protein (6.4-8.2) g/dL Albumin (3.4-5.0) g/dL Globulin Albumin/Globulin Ratio Urine Color Light yellow (YELLOW) Urine Appearance Clear (CLEAR) Urine pH 6.5 (5.0-8.0) Ur Specific [place] 1.010 Urine Protein Negative (NEGATIVE) mg/dL Urine Glucose (UA) Negative (NEGATIVE) mg/dL Urine Ketones Negative (NEGATIVE) mg/dL Urine Occult Blood Trace-intact H (NEGATIVE) Urine Nitrite Negative (NEGATIVE) Urine Bilirubin Negative (NEGATIVE) Urine Urobilinogen 0.2 (0.2) EU/dL Ur Leukocyte Esterase Negative (NEGATIVE) Urine RBC 0-5 (NOT SEEN) /HPF Urine WBC Not seen (NOT SEEN) /HPF Ur Squamous Epith Cells Rare (NEGATIVE) /HPF Urine Bacteria Not seen (NEGATIVE) /HPF Urine Mucus Not seen (NEGATIVE) /LPF 03/23/20 Range/Units 21:16 WBC (4.0-10.0) x10^3/uL RBC (4.5-6.0) x10^6/uL Hgb (14.0-18.0) g/dL Hct (40.0-52.0) % MCV (78.0-93.0) fL MCH (26.0-32.0) pg MCHC (32.0-36.0) g/dL RDW Coeff of Rogelio (10.0-15.0) % Plt Count (130-400) x10^3/uL Neut % (Auto) (50.0-80.0) % Lymph % (Auto) (25.0-50.0) % [place] % (Auto) (2.0-11.0) % Eos % (Auto) (0.0-4.0) % Baso % (Auto) (0.2-1.2) % PT (9.5-12.3) SEC INR (2.0-3.5) Sodium 140 (136-145) mmol/L Potassium 3.5 (3.5-5.1) mmol/L Chloride 104 (98-107) mmol/L Carbon Dioxide 26 (21-32) mmol/L Anion Gap 13.5 (10-20) mmol/L BUN 11 (7-18) mg/dL Creatinine 0.7 (0.70-1.30) mg/dL Est Cr Clr Drug Dosing 78.10 mL/min Estimated GFR (MDRD) > 60 Glucose 96 (74-106) mg/dL Calcium 8.6 (8.5-10.1) mg/dL Corrected Calcium 9.08 (8.5-10.1) mg/dL Total Bilirubin 0.8 (0.2-1.0) mg/dL AST 19 (15-37) U/L ALT 18 (16-63) U/L Alkaline Phosphatase 72 (46-116) U/L Total Protein 6.4 (6.4-8.2) g/dL Albumin 3.4 (3.4-5.0) g/dL Globulin 3.0 Albumin/Globulin Ratio 1.13 Urine Color (YELLOW) Urine Appearance (CLEAR) Urine pH (5.0-8.0) Ur Specific [place] Urine Protein (NEGATIVE) mg/dL Urine Glucose (UA) (NEGATIVE) mg/dL Urine Ketones (NEGATIVE) mg/dL Urine Occult Blood (NEGATIVE) Urine Nitrite (NEGATIVE) Urine Bilirubin (NEGATIVE) Urine Urobilinogen (0.2) EU/dL Ur Leukocyte Esterase (NEGATIVE) Urine RBC (NOT SEEN) /HPF Urine WBC (NOT SEEN) /HPF Ur Squamous Epith Cells (NEGATIVE) /HPF Urine Bacteria (NEGATIVE) /HPF Urine Mucus (NEGATIVE) /LPF Meds: Medications Discontinued Medications Generic Name Dose Route Start Last Admin Trade Name Freq PRN Reason Stop Dose Admin Meclizine HCl 25 mg 03/23/20 20:55 03/23/20 21:06 Antivert PO 03/23/20 20:56 25 mg ONETIME ONE Administration Departure - Departure Time of Disposition: 21:50 Disposition: Home, Self-Care 01 Condition: Good Clinical Impression: Vertigo Hypertension Qualifiers: Hypertension type: unspecified Qualified Code(s): I10 - Essential (primary) hypertension - Discharge Information *PRESCRIPTION DRUG MONITORING PROGRAM REVIEWED*: Not Applicable *COPY OF PRESCRIPTION DRUG MONITORING REPORT IN PATIENT ADEEL: Not Applicable Instructions: Dizziness, [id number], Vertigo, [id number], Benign Positional Vertigo, Fluticasone nasal spray Referrals: Alejo Parmar MD [Primary Care Provider] - Forms: ED Department Discharge Additional Instructions: 1. rest 2. increase your water intake 3. Continue all at home medications 4. Activity and diet as tolerated 5. Can take over the counter Tylenol for any pain or discomfort 6. Follow up with PCP if symptoms continue, return, or progress 7. Call with any questions or concerns 8. Take Flonase twice a day for 2 weeks to help with plugged eustachian tubes Sepsis Event Note (ED) - Focused Exam Vital Signs: Vital Signs Temp Pulse Resp BP Pulse Ox 03/23/20 20:40 36.6 C 62 16 203/104 H 98 - Assessment/Plan Assessment:: 1. vertigo 2. hypertension 3. eustachian tube abnormality Plan: 1. Labs completed in the ER. Results reviewed with the patient 2. 4. Pain medication given for severe pain and discomfort- 5. Zofran given in the ER to help with nausea 6. Patient and nursing staff was updated regarding the plan of care 7. Education provided the patient regarding activity, diet, rest, [id number] medication modalities, and follow-up care was provided 8. Patient and family are agreeable to the above plan of care 9. All questions and concerns were addressed with the patient and family prior to discharge
[2020-03-23] MEDS: Meclizine 25 MG Tab PO ONE (21:06)
[2020-03-23 21:16] VITALS: PULSE 62
[2020-03-23 21:41] LABS: CHLORIDE,CL 104 mmol/L (98-107); SODIUM,NA 140 mmol/L (136-145)
[2020-03-23 21:42] LABS: ANION GAP 13.5 mmol/L (10-20)
[2020-03-23 21:47] VITALS: BP 162/88
== END 2020-03-23 22:00 | disposition home or self-care (01) ==
LOC: SUPCPDRO 20:24 → VM.ED 20:24
DX: I10 Essential (primary) hypertension (principal); H69.93 Unspecified Eustachian tube disorder, bilateral; I25.10 Atherosclerotic heart disease of native coronary artery without angina pectoris; I48.91 Unspecified atrial fibrillation; I25.2 Old myocardial infarction; K21.9 Gastro-esophageal reflux disease without esophagitis; Z95.5 Presence of coronary angioplasty implant and graft; Z88.8 Allergy status to other drugs, medicaments and biological substances; Z88.0 Allergy status to penicillin; Z91.030 Bee allergy status; Z79.899 Other long term (current) drug therapy; Z79.82 Long term (current) use of aspirin
CPT/HCPCS: 36415; 80053; 81001; 85025; 85610; 93005; 99284; A9270

== ENCOUNTER 2020-08-03 10:59 | Emergency (ER) | payer MEDICARE, OTHER ==
[2020-08-03 11:41] VITALS: BP 208/102; PULSE 74
--- NOTE | 2020-08-03 11:43 | EDM.PDOC ---
ED HPI GENERAL MEDICAL PROBLEM - General Chief Complaint: General Stated Complaint: SHORTNESS OF BREATH Time Seen by Provider: 08/03/20 11:15 Source of Information: Reports: Patient, Family History Limitations: Reports: No Limitations - History of Present Illness INITIAL COMMENTS - FREE TEXT/NARRATIVE: Patient states that after climbing a few small stairs at the house he became short of breath and dizziness that lasted for a minute or 2 and then went away. Patient states he just did not feel right for a few minutes he states he just wanted to come get checked out. He also wants us to look at his left leg secondary to bruising. Which he denies any injury that have could have caused it. He denies any injury today no head injury or headache and states he feels fine at this current moment. I reviewed his office visit from 1231 where he was seen for the bruising on his leg noticed that he was normotensive he had a therapeutic INR of 3.3 Onset: Today, Sudden Duration: Minutes: Associated Symptoms: Reports: No Other Symptoms, Shortness of Breath. Denies: Confusion, Chest Pain, Cough, cough w sputum, Diaphoresis, Fever/Chills, Headaches, Loss of Appetite, Nausea/Vomiting, Rash, Seizure, Syncope, Weakness - Related Data Allergies Allergy/AdvReac Type Severity Reaction Status Date / Time atorvastatin calcium Allergy Other Verified 08/03/20 11:16 [From Lipitor] gluten Allergy Diarrhea Verified 08/03/20 11:16 nitroglycerin Allergy Hives Verified 08/03/20 11:16 [From Nitro-Dur] Penicillins AdvReac Vomiting Verified 08/03/20 11:16 venom-honey bee AdvReac Vomiting Verified 08/03/20 11:16 [bee venom (honey bee)] Home Meds: Home Meds Isosorbide Mononitrate [Imdur] 15 mg PO DAILY 12/17/13 [History] Melatonin 5 mg PO BEDTIME 12/17/13 [History] Multivitamin [Multi-Vitamin Daily] 1 tab PO DAILY 12/17/13 [History] [place]-3/DHA/Epa/Fish Oil [[place]-3 Fish Oil 1,000 MG Sfgl] 1,000 mg PO TID 12/17/13 [History] Tamsulosin HCl 0.4 mg PO BEDTIME 12/17/13 [History] Pravastatin [Pravachol] 20 mg PO BEDTIME 06/13/15 [History] Aspirin [Halfprin] 81 mg PO DAILY 10/13/18 [History] Clindamycin Phosphate [Cleocin T] 0.5 gm TP BID 10/13/18 [History] diphenhydrAMINE [Benadryl] 25 mg PO BEDTIME 10/13/18 [History] Pantoprazole Sodium [Protonix] 40 mg PO DAILY 06/05/19 [History] Warfarin [Coumadin] 7.5 mg PO SuTuThSa@199906/05/19 [History] Warfarin [Coumadin] 10 mg PO MOWEFR@06/05/19 [History] Sotalol [Betapace, Sorine] 80 mg PO BID 06/17/19 [History] Baclofen 10 mg PO TID 03/09/20 [History] methylPREDNISolone [Medrol Dose Pack] 4 mg PO ASDIRECTED 03/09/20 [History] Past Medical History HEENT History: Reports: Cataract, Hard of Hearing, Other (See Below) Other HEENT History: post vitreous detachment. presbyopia Cardiovascular History: Reports: Afib, CAD, High Cholesterol, Hypertension, [place], Pacemaker, Other (See Below) Other Cardiovascular History: first degree AV block Respiratory History: Reports: COPD, Sleep Apnea Gastrointestinal History: Reports: Celiac Disease, GERD, Hiatal Hernia Other Gastrointestinal History: hx of barretts Genitourinary History: Reports: BPH Other Psychiatric History: insomnia Dermatologic History: Reports: Other (See Below) Other Dermatologic History: rosacea - Infectious Disease History Infectious Disease History: Reports: Chicken Pox - Past Surgical History HEENT Surgical History: Reports: Cataract Surgery, Tonsillectomy Cardiovascular Surgical History: Reports: Coronary Artery Stent, Other (See Below) Other Cardiovascular Surgeries/Procedures: coronary angioplasty GI Surgical History: Reports: Colonoscopy Musculoskeletal Surgical History: Reports: Shoulder Surgery Social & Family History - Family History Family Medical History: No Pertinent Family History - Caffeine Use Caffeine Use: Reports: Coffee, Soda ED ROS GENERAL - Review of Systems Review Of Systems: See Below Constitutional: Reports: No Symptoms. Denies: Fever, Chills, Malaise, Weakness, Fatigue, Night Sweats, Diaphoresis, Decreased Appetite, Weight Gain HEENT: Denies: Sinus Problem, Vertigo, Vision Change Respiratory: Reports: Shortness of Breath, Other (Patient denies any CROWELL PND orthopnea pedal edema weight gain states he sleeps with one pillow no issues). Denies: Wheezing, Pleuritic Chest Pain, Cough, Sputum, Hemoptysis Cardiovascular: Reports: Lightheadedness. Denies: Chest Pain, Blood Pressure Problem, Claudication, Dyspnea on Exertion, Edema, Orthopnea, Palpitations, PND, Syncope Endocrine: Reports: No Symptoms. Denies: Fatigue GI/Abdominal: Reports: No Symptoms. Denies: Abdominal Pain, Black Stool, Nausea, Vomiting : Reports: No Symptoms Musculoskeletal: Reports: No Symptoms Skin: Reports: Bruising Neurological: Reports: Dizziness. Denies: Confusion, Headache, Numbness, Paresthesia, Pre-Existing Deficit, Syncope, Tingling, Difficulty Walking, Weakness Psychiatric: Reports: No Symptoms Hematologic/Lymphatic: Reports: No Symptoms Immunologic: Reports: No Symptoms ED EXAM, GENERAL - Physical Exam Exam: See Below Exam Limited By: No Limitations General Appearance: Alert, WD/WN, No Apparent Distress, Other (Well-nourished well-developed no acute distress white male who is alert and oriented x4 cranial nerves II through XII are tested and intact he has equal campus aide bilateral 5 of 5 strength upper extremity lower extremity follows all questions and answers questions appropriately follows all commands appropriately no signs of any CVA) Eye Exam: Bilateral Eye: EOMI, PERRL Ears: Normal External Exam, Normal Canal, Hearing Grossly Normal, Normal TMs Nose: Normal Inspection, Normal Mucosa, No Blood Throat/Mouth: Normal Inspection, Normal Lips, Normal Teeth, Normal Gums, Normal Oropharynx, Normal Voice, No Airway Compromise Head: Atraumatic, Normocephalic Neck: Normal Inspection, Supple, Non-Tender, Full Range of Motion Respiratory/Chest: No Respiratory Distress, Lungs Clear, Normal Breath Sounds, No Accessory Muscle Use, Chest Non-Tender Cardiovascular: Normal Peripheral Pulses, Regular Rate, Rhythm, No Edema, No Gallop, No JVD, No Murmur, No Rub. No: JVD, Bradycardia, Tachycardia Peripheral Pulses: 2+: Radial (L), Radial (R), Femoral (L), Posterior Tibial (L), Posterior Tibial (R), Dorsalis Pedis (L), Dorsalis Pedis (R) GI/Abdominal: Normal Bowel Sounds, Soft, Non-Tender, No Organomegaly, No Distention, No Abnormal Bruit, No Mass, Pelvis Stable. No: Guarding, Rigid, Rebound, Tender, Hepatomegaly, Splenomegaly Back Exam: Normal Inspection, Full Range of Motion Extremities: Normal Inspection, Normal Range of Motion, Non-Tender, No Pedal Edema, Normal Capillary Refill, Other (Exam to the left extremity from mid thigh down to the distal calf there is scattered ecchymosis there is no tenderness to palpation the calf is soft and supple he is neurovascularly intact) Neurological: Alert, Oriented, CN II-XII Intact, Normal Cognition, Normal Gait, Normal Reflexes, No Motor/Sensory Deficits Psychiatric: Normal Affect, Normal Mood Skin Exam: Warm, Dry, Intact, Normal Color, No Rash. No: Ecchymosis Course - Vital Signs Text/Narrative:: Notes reviewed from clinic the other day lab check today CBC CMP INR troponin and urinalysis secondary to hypertension EKG which reveals normal sinus rhythm no acute findings MI interval is 234 INR level today is 2.7 troponin within normal limits urinalysis negative protein Patient recheck states he feels fine with no signs symptoms of any or endorgan damage in a patient within normal limits of an INR do not believe there is a blood clot or bleed at this time. Patient wants to be discharged back to home states he will follow-up with his primary care provider Blood pressure rechecked 160/94 patient states he feels normal wants to go home he is willing to take half an extra tablet of Imdur this afternoon and come back tomorrow to be rechecked our states he will come back if anything changes Last Recorded V/S: Last Vital Signs Temp 36.6 C 08/03/20 11:05 Pulse 74 08/03/20 11:05 Resp 16 08/03/20 11:05 BP 208/102 H 08/03/20 11:05 Pulse Ox 97 08/03/20 11:05 - Orders/Labs/Meds Labs: Laboratory Tests 08/03/20 08/03/20 08/03/20 Range/Units 11:48 11:48 11:48 WBC 6.0 (4.0-10.0) x10^3/uL RBC 4.09 L (4.5-6.0) x10^6/uL Hgb 12.3 L (14.0-18.0) g/dL Hct 36.8 L (40.0-52.0) % MCV 90.0 (78.0-93.0) fL MCH 30.1 (26.0-32.0) pg MCHC 33.4 (32.0-36.0) g/dL RDW Coeff of Rogelio 15.5 H (10.0-15.0) % Plt Count 305 (130-400) x10^3/uL Neut % (Auto) 76.3 (50.0-80.0) % Lymph % (Auto) 13.4 L (25.0-50.0) % [place] % (Auto) 7.6 (2.0-11.0) % Eos % (Auto) 2.2 (0.0-4.0) % Baso % (Auto) 0.5 (0.2-1.2) % PT 28.1 H (9.5-12.3) SEC INR 2.7 (2.0-3.5) Sodium 138 (136-145) mmol/L Potassium 3.7 (3.5-5.1) mmol/L Chloride 103 (98-107) mmol/L Carbon Dioxide 28 (21-32) mmol/L Anion Gap 10.7 (10-20) mmol/L BUN 11 (7-18) mg/dL Creatinine 0.6 L (0.70-1.30) mg/dL Est Cr Clr Drug Dosing 91.11 mL/min Estimated GFR (MDRD) > 60 Glucose 94 (74-106) mg/dL Calcium 8.7 (8.5-10.1) mg/dL Corrected Calcium 9.18 (8.5-10.1) mg/dL Total Bilirubin 0.9 (0.2-1.0) mg/dL AST 22 (15-37) U/L ALT 17 (16-63) U/L Alkaline Phosphatase 82 (46-116) U/L Troponin I < 0.017 (<=0.056) ng/mL Total Protein 6.6 (6.4-8.2) g/dL Albumin 3.4 (3.4-5.0) g/dL Globulin 3.2 Albumin/Globulin Ratio 1.06 Urine Color (YELLOW) Urine Appearance (CLEAR) Urine pH (5.0-8.0) Ur Specific [place] Urine Protein (NEGATIVE) mg/dL Urine Glucose (UA) (NEGATIVE) mg/dL Urine Ketones (NEGATIVE) mg/dL Urine Occult Blood (NEGATIVE) Urine Nitrite (NEGATIVE) Urine Bilirubin (NEGATIVE) Urine Urobilinogen (0.2) EU/dL Ur Leukocyte Esterase (NEGATIVE) Urine RBC (NOT SEEN) /HPF Urine WBC (NOT SEEN) /HPF Ur Squamous Epith Cells (NEGATIVE) /HPF Amorphous Sediment Urine Bacteria (NEGATIVE) /HPF Urine Mucus (NEGATIVE) /LPF 08/03/20 Range/Units 12:00 WBC (4.0-10.0) x10^3/uL RBC (4.5-6.0) x10^6/uL Hgb (14.0-18.0) g/dL Hct (40.0-52.0) % MCV (78.0-93.0) fL MCH (26.0-32.0) pg MCHC (32.0-36.0) g/dL RDW Coeff of Rogelio (10.0-15.0) % Plt Count (130-400) x10^3/uL Neut % (Auto) (50.0-80.0) % Lymph % (Auto) (25.0-50.0) % [place] % (Auto) (2.0-11.0) % Eos % (Auto) (0.0-4.0) % Baso % (Auto) (0.2-1.2) % PT (9.5-12.3) SEC INR (2.0-3.5) Sodium (136-145) mmol/L Potassium (3.5-5.1) mmol/L Chloride (98-107) mmol/L Carbon Dioxide (21-32) mmol/L Anion Gap (10-20) mmol/L BUN (7-18) mg/dL Creatinine (0.70-1.30) mg/dL Est Cr Clr Drug Dosing mL/min Estimated GFR (MDRD) Glucose (74-106) mg/dL Calcium (8.5-10.1) mg/dL Corrected Calcium (8.5-10.1) mg/dL Total Bilirubin (0.2-1.0) mg/dL AST (15-37) U/L ALT (16-63) U/L Alkaline Phosphatase (46-116) U/L Troponin I (<=0.056) ng/mL Total Protein (6.4-8.2) g/dL Albumin (3.4-5.0) g/dL Globulin Albumin/Globulin Ratio Urine Color Yellow (YELLOW) Urine Appearance Clear (CLEAR) Urine pH 7.0 (5.0-8.0) Ur Specific [place] 1.015 Urine Protein Negative (NEGATIVE) mg/dL Urine Glucose (UA) Negative (NEGATIVE) mg/dL Urine Ketones Negative (NEGATIVE) mg/dL Urine Occult Blood Negative (NEGATIVE) Urine Nitrite Negative (NEGATIVE) Urine Bilirubin Negative (NEGATIVE) Urine Urobilinogen 0.2 (0.2) EU/dL Ur Leukocyte Esterase Negative (NEGATIVE) Urine RBC 0-5 (NOT SEEN) /HPF Urine WBC Not seen (NOT SEEN) /HPF Ur Squamous Epith Cells Not seen (NEGATIVE) /HPF Amorphous Sediment Few Urine Bacteria Rare (NEGATIVE) /HPF Urine Mucus Rare H (NEGATIVE) /LPF Departure - Departure Time of Disposition: 12:45 Disposition: Home, Self-Care 01 Condition: Good Clinical Impression: Dizziness HTN (hypertension) Qualifiers: Hypertension type: unspecified Qualified Code(s): I10 - Essential (primary) hypertension - Discharge Information *PRESCRIPTION DRUG MONITORING PROGRAM REVIEWED*: No *COPY OF PRESCRIPTION DRUG MONITORING REPORT IN PATIENT ADEEL: No Forms: ED Department Discharge Sepsis Event Note (ED) - Evaluation Sepsis Screening Result: No Definite Risk - Focused Exam Vital Signs: Vital Signs Temp Pulse Resp BP Pulse Ox 08/03/20 11:05 36.6 C 74 16 208/102 H 97 - Problem List & Annotations (1) HTN (hypertension) SNOMED Code(s): 80814033 Code(s): I10 - ESSENTIAL (PRIMARY) HYPERTENSION Status: Acute Current Visit: Yes (2) Mild shortness of breath SNOMED Code(s): 214623968 Code(s): R06.02 - SHORTNESS OF BREATH Status: Acute Current Visit: No (3) Dizziness SNOMED Code(s): 248941004, 113321134 Code(s): R42 - DIZZINESS AND GIDDINESS Status: Acute Current Visit: Yes
[2020-08-03 12:20] LABS: CHLORIDE,CL 103 mmol/L (98-107); SODIUM,NA 138 mmol/L (136-145)
[2020-08-03 12:22] LABS: ANION GAP 10.7 mmol/L (10-20)
== END 2020-08-03 13:05 | disposition home or self-care (01) ==
LOC: VM.ED 10:59
DX: I10 Essential (primary) hypertension (principal); I48.91 Unspecified atrial fibrillation; I25.10 Atherosclerotic heart disease of native coronary artery without angina pectoris; E78.00 Pure hypercholesterolemia, unspecified; I25.2 Old myocardial infarction; J44.9 Chronic obstructive pulmonary disease, unspecified; K21.9 Gastro-esophageal reflux disease without esophagitis; N40.0 Benign prostatic hyperplasia without lower urinary tract symptoms; Z88.8 Allergy status to other drugs, medicaments and biological substances; Z91.018 Allergy to other foods; Z88.0 Allergy status to penicillin; Z91.030 Bee allergy status; Z79.82 Long term (current) use of aspirin; Z79.899 Other long term (current) drug therapy
CPT/HCPCS: 36415; 80053; 81001; 84484; 85025; 85610; 93005; 99284; 99285-25

== ENCOUNTER 2021-11-09 08:46 | Emergency (ER) | payer MEDICARE, OTHER ==
[2021-11-09 09:50] VITALS: BP 175/91; PULSE 69
== END 2021-11-09 10:57 | disposition home or self-care (01) ==
LOC: VM.ED 08:46
DX: S46.012A Strain of muscle(s) and tendon(s) of the rotator cuff of left shoulder, initial encounter (principal); I48.91 Unspecified atrial fibrillation; I25.10 Atherosclerotic heart disease of native coronary artery without angina pectoris; E78.00 Pure hypercholesterolemia, unspecified; I25.2 Old myocardial infarction; J44.9 Chronic obstructive pulmonary disease, unspecified; K21.9 Gastro-esophageal reflux disease without esophagitis; N40.0 Benign prostatic hyperplasia without lower urinary tract symptoms; Z95.0 Presence of cardiac pacemaker; Z88.0 Allergy status to penicillin; Z91.030 Bee allergy status; Z91.018 Allergy to other foods; Z88.8 Allergy status to other drugs, medicaments and biological substances; W19.XXXA Unspecified fall, initial encounter
CPT/HCPCS: 73030-LT; 99283; 99283-25

== ENCOUNTER 2022-02-28 14:21 | Emergency (ER) | payer MEDICARE, OTHER ==
[2022-02-28 14:47] VITALS: PULSE 68
[2022-02-28 15:10] LABS: CHLORIDE,CL 97 mmol/L (98-107); SODIUM,NA 132 mmol/L (136-145)
[2022-02-28 15:11] LABS: ANION GAP 12.3 mmol/L (5-15); ESTIMATED GFR 94 mL/min (>=60)
[2022-02-28 15:47] VITALS: BP 168/75
== END 2022-02-28 15:41 | disposition home or self-care (01) ==
LOC: VM.ED 14:21
DX: R00.2 Palpitations (principal); I25.10 Atherosclerotic heart disease of native coronary artery without angina pectoris; E78.00 Pure hypercholesterolemia, unspecified; I25.2 Old myocardial infarction; K21.9 Gastro-esophageal reflux disease without esophagitis; Z95.0 Presence of cardiac pacemaker; Z91.018 Allergy to other foods; Z91.030 Bee allergy status; Z79.899 Other long term (current) drug therapy
CPT/HCPCS: 36415; 71046; 80053; 82550; 83615; 84484; 85025; 85610; 93005; 93010; 99284; 99285

== ENCOUNTER 2022-06-27 13:56 | Emergency (ER) | payer MEDICARE, OTHER ==
[2022-06-27 15:06] LABS: CHLORIDE,CL 96 mmol/L (98-107); SODIUM,NA 130 mmol/L (136-145)
[2022-06-27 15:07] LABS: ANION GAP 8.1 mmol/L (5-15); ESTIMATED GFR 94 mL/min (>=60)
[2022-06-27] MEDS: Albuterol/Ipratropium 3.0-0.5 MG/3 ML Neb Soln NEB ONE (15:45)
[2022-06-27] MEDS: Take Home: predniSONE 20 MG, 2 Tab Pack PO ONE (16:16)
[2022-06-27 17:48] VITALS: BP 142/72; PULSE 70
== END 2022-06-27 16:15 | disposition home or self-care (01) ==
LOC: VM.ED 13:56
DX: J44.9 Chronic obstructive pulmonary disease, unspecified (principal); I25.10 Atherosclerotic heart disease of native coronary artery without angina pectoris; E78.00 Pure hypercholesterolemia, unspecified; I10 Essential (primary) hypertension; K21.9 Gastro-esophageal reflux disease without esophagitis; I25.2 Old myocardial infarction; Z95.0 Presence of cardiac pacemaker; Z88.0 Allergy status to penicillin; Z91.030 Bee allergy status; Z91.018 Allergy to other foods; Z79.01 Long term (current) use of anticoagulants; Z79.899 Other long term (current) drug therapy
CPT/HCPCS: 36415; 71046; 80053; 85025; 86140; 94640; 99285; J7512; J7620-GY

== ENCOUNTER 2022-09-26 10:39 | Emergency (ER) | payer MEDICARE, OTHER ==
[2022-09-26 10:58] VITALS: BP 136/88; PULSE 62
== END 2022-09-26 12:26 | disposition home or self-care (01) ==
LOC: VM.ED 10:39
DX: S20.212A Contusion of left front wall of thorax, initial encounter (principal); I48.91 Unspecified atrial fibrillation; I25.10 Atherosclerotic heart disease of native coronary artery without angina pectoris; J44.9 Chronic obstructive pulmonary disease, unspecified; E78.00 Pure hypercholesterolemia, unspecified; I10 Essential (primary) hypertension; I25.2 Old myocardial infarction; K21.9 Gastro-esophageal reflux disease without esophagitis; N40.0 Benign prostatic hyperplasia without lower urinary tract symptoms; Z95.0 Presence of cardiac pacemaker; Z88.0 Allergy status to penicillin; Z88.8 Allergy status to other drugs, medicaments and biological substances; Z91.018 Allergy to other foods; Z91.030 Bee allergy status; Z79.899 Other long term (current) drug therapy; Z79.82 Long term (current) use of aspirin; Z79.01 Long term (current) use of anticoagulants; W01.198A Fall on same level from slipping, tripping and stumbling with subsequent striking against other object, initial encounter; Y92.009 Unspecified place in unspecified non-institutional (private) residence as the place of occurrence of the external cause
CPT/HCPCS: 71046; 71100-LT; 99283

== ENCOUNTER 2022-11-11 15:07 | Emergency (ER) | payer MEDICARE, OTHER ==
[2022-11-11 15:42] VITALS: BP 149/82; PULSE 66
== END 2022-11-11 16:06 | disposition home or self-care (01) ==
LOC: VM.ED 15:07
DX: K21.9 Gastro-esophageal reflux disease without esophagitis (principal); I48.91 Unspecified atrial fibrillation; I25.10 Atherosclerotic heart disease of native coronary artery without angina pectoris; E78.00 Pure hypercholesterolemia, unspecified; I10 Essential (primary) hypertension; I25.2 Old myocardial infarction; J44.9 Chronic obstructive pulmonary disease, unspecified; Z95.0 Presence of cardiac pacemaker; Z88.0 Allergy status to penicillin; Z91.018 Allergy to other foods; Z91.030 Bee allergy status; Z88.8 Allergy status to other drugs, medicaments and biological substances; Z79.82 Long term (current) use of aspirin; Z79.01 Long term (current) use of anticoagulants; Z79.899 Other long term (current) drug therapy
CPT/HCPCS: 99284

== ENCOUNTER 2022-11-29 19:51 | Observation (INO) | payer MEDICARE, OTHER ==
[2022-11-29] MEDS ORDERED: Sodium Chloride 0.9% 10 ML Syringe FLUSH PRN (20:04)
[2022-11-29] MEDS ORDERED: Labetalol 20 MG/4 ML Syringe IVPUSH ONE ×2 (20:07→23:28)
[2022-11-29] MEDS ORDERED: Ondansetron 4 MG/2 ML SDV IVPUSH ONE (20:07)
[2022-11-29 21:14] LABS: CHLORIDE,CL 98 mmol/L (98-107); SODIUM,NA 134 mmol/L (136-145)
[2022-11-29 21:17] LABS: ANION GAP 12.4 mmol/L (5-15); ESTIMATED GFR 104 mL/min (>=60)
[2022-11-29 21:46] LABS: CORONAVIRUS COVID-19 NAA NEGATIVE (NEGATIVE)
[2022-11-29 21:47] LABS: RESPIRATORY SYNCYTIAL VIR NAA NEGATIVE (NEGATIVE)
[2022-11-29] MEDS ORDERED: Magnesium Sulfate/Water 2 GM in Premix Bag 1 BAG IV ONE (23:57)
[2022-11-30] MEDS: NS + KCl 20mEq/L 1,000 ML IV SCH ×2 (00:30→08:25)
[2022-11-30] MEDS ORDERED: Albuterol/Ipratropium 3.0-0.5 MG/3 ML Neb Soln NEB PRN (01:07)
[2022-11-30] MEDS ORDERED: ALBUTEROL SULFATE AD IH PRN (01:07)
[2022-11-30] MEDS: Sotalol 80 MG Tab PO SCH ×2 (01:17→08:16)
[2022-11-30] MEDS: Isosorbide Mononitrate 30 MG Tab.ER PO SCH ×2 (01:17→08:16)
[2022-11-30 07:54] LABS: ANION GAP 9.8 mmol/L (5-15)
[2022-11-30] MEDS ORDERED: RIVASTIGMINE 1.5 MG PO SCH (08:00)
[2022-11-30] MEDS ORDERED: Carbidopa/Levodopa 25-100 MG Tab PO SCH (09:00)
[2022-11-30] MEDS ORDERED: Fish Oil/Omega-3 Fatty Acids 1 Gm Cap PO SCH (09:00)
[2022-11-30] MEDS ORDERED: Baclofen 10 MG Tab PO SCH (09:00)
[2022-11-30] MEDS ORDERED: Pantoprazole 40 MG Tab.CR PO SCH (09:00)
[2022-11-30] MEDS ORDERED: Aspirin 81 MG Tab.EC PO SCH (09:00)
[2022-11-30] MEDS ORDERED: Non-Formulary Medication 1 Each (Multivitamin [Multi-Vitamin Daily] 1 EACH Tablet) PO SCH (09:00)
[2022-11-30] MEDS ORDERED: FLUTICASONE PROPIONATE INH SCH (09:00)
[2022-11-30 10:23] VITALS: BP 160/89; PULSE 74
[2022-11-30] MEDS ORDERED: Albuterol HFA 18 Gm Inhaler (OWN SUPPLY) INH PRN (11:18)
[2022-11-30] MEDS ORDERED: Warfarin 5 MG Tab PO SCH (20:00)
[2022-11-30] MEDS ORDERED: Tamsulosin 0.4 MG Cap.ER PO SCH (21:00)
[2022-11-30] MEDS ORDERED: Melatonin 3 MG Tab PO SCH (21:00)
[2022-11-30] MEDS ORDERED: Pravastatin 20 MG Tab PO SCH (21:00)
[2022-12-01] MEDS ORDERED: Multivitamin Tab PO SCH (09:00)
[2022-12-01] MEDS ORDERED: Warfarin 2.5 MG Tab PO SCH (20:00)
== END 2022-11-30 11:30 | disposition home or self-care (01) ==
LOC: VM.ED 19:51 → VM.MS 21:58
PROVIDERS: ADMIT Physician Assistant; ATTEND Physician Assistant
DX: I16.9 Hypertensive crisis, unspecified (principal); R11.2 Nausea with vomiting, unspecified; R19.7 Diarrhea, unspecified; I25.10 Atherosclerotic heart disease of native coronary artery without angina pectoris; I48.91 Unspecified atrial fibrillation; K21.9 Gastro-esophageal reflux disease without esophagitis; E78.00 Pure hypercholesterolemia, unspecified; I10 Essential (primary) hypertension; J44.9 Chronic obstructive pulmonary disease, unspecified; G47.00 Insomnia, unspecified; N40.0 Benign prostatic hyperplasia without lower urinary tract symptoms; Z90.89 Acquired absence of other organs; Z95.5 Presence of coronary angioplasty implant and graft; Z79.84 Long term (current) use of oral hypoglycemic drugs; Z79.82 Long term (current) use of aspirin; Z79.899 Other long term (current) drug therapy; Z20.822 Contact with and (suspected) exposure to COVID-19; Z98.890 Other specified postprocedural states; Z79.01 Long term (current) use of anticoagulants; Z88.8 Allergy status to other drugs, medicaments and biological substances; Z91.018 Allergy to other foods; Z88.0 Allergy status to penicillin; Z91.038 Other insect allergy status; Z95.0 Presence of cardiac pacemaker
CPT/HCPCS: 0241U; 36415; 74022; 80053; 81001; 83605; 83735; 83880; 84484; 85025; 85610; 85730; 93005; 93010; 96365; 96366; 96368; 96374; 96375; 96376; 99223; 99238; 99285-25; A9270-GY; G0378; J2405; J3475; J3480; J3490

== ENCOUNTER 2023-01-30 23:23 | Emergency (ER) | payer MEDICARE, OTHER ==
[2023-01-30] MEDS ORDERED: HYDROmorphone 1 MG/ML Syringe SUBCUT ONE (23:27)
[2023-01-31] MEDS ORDERED: Take Home: Acetaminophen/Codeine 300 MG/30 MG, 5 Tab Pack PO ONE (00:09)
[2023-01-31 07:19] VITALS: BP 174/98; PULSE 93
== END 2023-01-31 00:12 | disposition home or self-care (01) ==
LOC: VM.ED 23:23
DX: M75.41 Impingement syndrome of right shoulder (principal); I48.91 Unspecified atrial fibrillation; I25.10 Atherosclerotic heart disease of native coronary artery without angina pectoris; I10 Essential (primary) hypertension; I25.2 Old myocardial infarction; J44.9 Chronic obstructive pulmonary disease, unspecified; K21.9 Gastro-esophageal reflux disease without esophagitis; N40.0 Benign prostatic hyperplasia without lower urinary tract symptoms; Z88.8 Allergy status to other drugs, medicaments and biological substances; Z91.018 Allergy to other foods; Z88.0 Allergy status to penicillin; Z91.030 Bee allergy status; Z79.899 Other long term (current) drug therapy; Z79.82 Long term (current) use of aspirin
CPT/HCPCS: 96372; 99284; A9270-GY; J1170

== ENCOUNTER 2023-02-22 10:37 | Emergency (ER) | payer MEDICARE, OTHER ==
[2023-02-22] MEDS ORDERED: Ondansetron 4 MG Tab.DIS PO ONE (11:06)
[2023-02-22 11:16] LABS: BASOPHILS PERCENT AUTO 0.1 % (0.2-1.2); EOSINOPHILS ABSOLUTE AUTO 0.1 x10^3/uL (0.0-0.5); EOSINOPHILS PERCENT AUTO 1.5 % (0.0-4.0); HEMATOCRIT 37.6 % (40.0-52.0); HEMOGLOBIN 13.2 g/dL (14.0-18.0); IMMATURE GRAN ABSOLUTE AUTO 0.01 x10^3/uL (0.00-0.07); LYMPHOCYTES ABSOLUTE AUTO 0.8 x10^3/uL (1.0-4.8); LYMPHOCYTES PERCENT AUTO 11.3 % (25.0-50.0); MEAN CORPUSCULAR HEMOGLOBIN 32.5 pg (26.0-32.0); MEAN CORPUSCULAR HGB CONC 35.1 g/dL (32.0-36.0); MEAN CORPUSCULAR VOLUME 92.6 fL (78.0-93.0); MONOCYTES ABSOLUTE AUTO 0.5 x10^3/uL (0.0-0.8); MONOCYTES PERCENT AUTO 6.4 % (2.0-11.0); NEUTROPHILS ABSOLUTE AUTO 5.8 x10^3/uL (1.8-7.7); NEUTROPHILS PERCENT AUTO 80.6 % (50.0-80.0); PLATELET COUNT,PLT 310 x10^3/uL (130-400); RED BLOOD CELL COUNT 4.06 x10^6/uL (4.5-6.0); WHITE BLOOD CELL COUNT,WBC 7.2 x10^3/uL (4.0-10.0)
[2023-02-22 11:36] LABS: A/G RATIO 1.07; ALANINE AMINOTRANSFERASE,ALT 14 U/L (16-63); ALBUMIN 3.2 g/dL (3.4-5.0); ALKALINE PHOSPHATASE 71 U/L (46-116); ASPARTATE AMNIOTRANSFERASE,AST 16 U/L (15-37); BILIRUBIN TOTAL 0.7 mg/dL (0.2-1.0); BLOOD UREA NITROGEN,BUN 10 mg/dL (7-18); C-REACTIVE PROTEIN 0.27 mg/dL (<=0.30); CALCIUM 8.8 mg/dL (8.5-10.1); CARBON DIOXIDE,CO2 30 mmol/L (21-32); CHLORIDE,CL 102 mmol/L (98-107); CREATININE 0.6 mg/dL (0.70-1.30); GLUCOSE RANDOM 125 mg/dL (70-99); LIPASE 28 U/L (19-71); POTASSIUM,K 3.9 mmol/L (3.5-5.1); PROTEIN TOTAL,TP 6.2 g/dL (6.4-8.2); SODIUM,NA 138 mmol/L (136-145)
[2023-02-22 11:37] LABS: ANION GAP 9.9 mmol/L (5-15); ESTIMATED GFR 98 mL/min (>=60)
== END 2023-02-22 12:22 | disposition home or self-care (01) ==
LOC: VM.ED 10:37
DX: R11.0 Nausea (principal); I48.91 Unspecified atrial fibrillation; I25.2 Old myocardial infarction; K21.9 Gastro-esophageal reflux disease without esophagitis; E78.00 Pure hypercholesterolemia, unspecified; I10 Essential (primary) hypertension; Z95.5 Presence of coronary angioplasty implant and graft; Z87.891 Personal history of nicotine dependence; Z79.899 Other long term (current) drug therapy; Z79.82 Long term (current) use of aspirin; Z91.030 Bee allergy status; Z91.018 Allergy to other foods; Z88.8 Allergy status to other drugs, medicaments and biological substances; Z88.6 Allergy status to analgesic agent; Z88.0 Allergy status to penicillin
CPT/HCPCS: 36415; 74019; 80053; 83690; 85025; 86140; 99283; A9270-GY

== ENCOUNTER 2023-02-27 16:32 | Emergency (ER) | payer MEDICARE, OTHER ==
[2023-02-27] MEDS ORDERED: Metoclopramide 10 MG/2 ML SDV IVPUSH ONE (16:47)
[2023-02-27 17:03] LABS: BASOPHILS PERCENT AUTO 0.5 % (0.2-1.2); EOSINOPHILS ABSOLUTE AUTO 0.2 x10^3/uL (0.0-0.5); HEMATOCRIT 40.2 % (40.0-52.0); IMMATURE GRAN ABSOLUTE AUTO 0.02 x10^3/uL (0.00-0.07); LYMPHOCYTES ABSOLUTE AUTO 0.9 x10^3/uL (1.0-4.8); MEAN CORPUSCULAR HEMOGLOBIN 32.1 pg (26.0-32.0); MEAN CORPUSCULAR HGB CONC 34.8 g/dL (32.0-36.0); MEAN CORPUSCULAR VOLUME 92.2 fL (78.0-93.0); MONOCYTES ABSOLUTE AUTO 0.5 x10^3/uL (0.0-0.8); MONOCYTES PERCENT AUTO 6.1 % (2.0-11.0); NEUTROPHILS ABSOLUTE AUTO 6.4 x10^3/uL (1.8-7.7); NEUTROPHILS PERCENT AUTO 80.1 % (50.0-80.0); PLATELET COUNT,PLT 305 x10^3/uL (130-400); RED BLOOD CELL COUNT 4.36 x10^6/uL (4.5-6.0)
[2023-02-27 17:07] LABS: APPEARANCE,URINE CLEAR (CLEAR); BILIRUBIN,URINE NEGATIVE (NEGATIVE); COLOR,URINE LIGHT YELLOW (YELLOW); GLUCOSE,URINE NEGATIVE (NEGATIVE); KETONES,URINE NEGATIVE (NEGATIVE); LEUKOCYTE ESTERASE,URINE NEGATIVE (NEGATIVE); NITRITE,URINE NEGATIVE (NEGATIVE); OCCULT BLOOD,URINE TRACE-INTACT (NEGATIVE); PROTEIN,URINE NEGATIVE (NEGATIVE); UROBILINOGEN,URINE 0.2 EU/dL (0.2)
[2023-02-27 17:15] LABS: BACTERIA,URINE NOT SEEN /HPF (NOT SEEN); MUCUS,URINE NOT SEEN /LPF (NOT SEEN); RBC,URINE 0-5 /HPF (NOT SEEN); SQUAMOUS EPITHELIAL CELLS,UR RARE /HPF (NOT SEEN); WBC,URINE 0-5 /HPF (NOT SEEN)
[2023-02-27 17:26] LABS: A/G RATIO 1.09; ALANINE AMINOTRANSFERASE,ALT 15 U/L (16-63); ALBUMIN 3.6 g/dL (3.4-5.0); ALKALINE PHOSPHATASE 80 U/L (46-116); ASPARTATE AMNIOTRANSFERASE,AST 17 U/L (15-37); BILIRUBIN TOTAL 0.5 mg/dL (0.2-1.0); BLOOD UREA NITROGEN,BUN 13 mg/dL (7-18); CALCIUM 9.2 mg/dL (8.5-10.1); CARBON DIOXIDE,CO2 27 mmol/L (21-32); CHLORIDE,CL 98 mmol/L (98-107); CREATININE 0.6 mg/dL (0.70-1.30); GLUCOSE RANDOM 109 mg/dL (70-99); LIPASE 41 U/L (19-71); PROTEIN TOTAL,TP 6.9 g/dL (6.4-8.2); SODIUM,NA 135 mmol/L (136-145)
[2023-02-27 17:30] LABS: ESTIMATED GFR 98 mL/min (>=60)
[2023-02-27] MEDS ORDERED: Iopamidol 612 MG/ML 100 ML Bottle IVPUSH ONE (17:47)
[2023-02-27 22:20] VITALS: BP 201/97; PULSE 86
== END 2023-02-27 19:11 | disposition home or self-care (01) ==
LOC: VM.ED 16:32
DX: K21.9 Gastro-esophageal reflux disease without esophagitis (principal); R11.0 Nausea; I48.91 Unspecified atrial fibrillation; I25.10 Atherosclerotic heart disease of native coronary artery without angina pectoris; E78.00 Pure hypercholesterolemia, unspecified; I10 Essential (primary) hypertension; I25.2 Old myocardial infarction; J44.9 Chronic obstructive pulmonary disease, unspecified; Z95.0 Presence of cardiac pacemaker; Z88.0 Allergy status to penicillin; Z91.018 Allergy to other foods; Z91.030 Bee allergy status; Z88.8 Allergy status to other drugs, medicaments and biological substances; Z79.82 Long term (current) use of aspirin; Z79.01 Long term (current) use of anticoagulants; Z79.899 Other long term (current) drug therapy
CPT/HCPCS: 74177; 80053; 81001; 83690; 84484; 85025; 93005; 96374; 99284; J2765; Q9967

== ENCOUNTER 2023-03-17 19:13 | Emergency (ER) | payer MEDICARE, OTHER ==
[2023-03-17 19:38] LABS: BASOPHILS PERCENT AUTO 0.3 % (0.2-1.2); EOSINOPHILS ABSOLUTE AUTO 0.1 x10^3/uL (0.0-0.5); EOSINOPHILS PERCENT AUTO 0.5 % (0.0-4.0); HEMATOCRIT 39.6 % (40.0-52.0); HEMOGLOBIN 13.9 g/dL (14.0-18.0); IMMATURE GRAN ABSOLUTE AUTO 0.03 x10^3/uL (0.00-0.07); LYMPHOCYTES PERCENT AUTO 3.8 % (25.0-50.0); MEAN CORPUSCULAR HEMOGLOBIN 32.6 pg (26.0-32.0); MEAN CORPUSCULAR HGB CONC 35.1 g/dL (32.0-36.0); MEAN CORPUSCULAR VOLUME 92.7 fL (78.0-93.0); MONOCYTES ABSOLUTE AUTO 0.2 x10^3/uL (0.0-0.8); MONOCYTES PERCENT AUTO 2.2 % (2.0-11.0); NEUTROPHILS ABSOLUTE AUTO 8.6 x10^3/uL (1.8-7.7); NEUTROPHILS PERCENT AUTO 92.9 % (50.0-80.0); PLATELET COUNT,PLT 270 x10^3/uL (130-400); RED BLOOD CELL COUNT 4.27 x10^6/uL (4.5-6.0); WHITE BLOOD CELL COUNT,WBC 9.2 x10^3/uL (4.0-10.0)
[2023-03-17 19:55] LABS: BLOOD UREA NITROGEN,BUN 12 mg/dL (7-18); C-REACTIVE PROTEIN 0.38 mg/dL (<=0.30); CALCIUM 8.6 mg/dL (8.5-10.1); CARBON DIOXIDE,CO2 26 mmol/L (21-32); CHLORIDE,CL 98 mmol/L (98-107); CREATININE 0.6 mg/dL (0.70-1.30); GLUCOSE RANDOM 163 mg/dL (70-99); POTASSIUM,K 3.8 mmol/L (3.5-5.1); SODIUM,NA 135 mmol/L (136-145)
[2023-03-17 20:13] LABS: ANION GAP 14.8 mmol/L (5-15); ESTIMATED GFR 98 mL/min (>=60)
[2023-03-17 20:16] LABS: LYMPHOCYTES ABSOLUTE AUTO 0.4 x10^3/uL (1.0-4.8)
[2023-03-18 06:06] VITALS: BP 177/86; PULSE 69
== END 2023-03-17 20:42 | disposition home or self-care (01) ==
LOC: SUPCPDRO 19:13 → VM.ED 19:13
DX: J47.9 Bronchiectasis, uncomplicated (principal); J44.9 Chronic obstructive pulmonary disease, unspecified; I10 Essential (primary) hypertension; I48.91 Unspecified atrial fibrillation; K21.9 Gastro-esophageal reflux disease without esophagitis; I25.2 Old myocardial infarction; Z91.030 Bee allergy status; Z88.8 Allergy status to other drugs, medicaments and biological substances; Z88.0 Allergy status to penicillin; Z91.09 Other allergy status, other than to drugs and biological substances; Z79.02 Long term (current) use of antithrombotics/antiplatelets; Z87.891 Personal history of nicotine dependence
CPT/HCPCS: 36415; 80048; 85025; 86140; 99284

== ENCOUNTER 2025-05-21 18:25 | Emergency (ER) | payer OTHER, MEDICARE ==
[2025-05-21 18:36] VITALS: BP 193/93; PULSE 78
== END 2025-05-21 19:12 | disposition home or self-care (01) ==
LOC: VM.ED 18:25
DX: S61.214A Laceration without foreign body of right ring finger without damage to nail, initial encounter (principal); I10 Essential (primary) hypertension; J44.9 Chronic obstructive pulmonary disease, unspecified; I48.91 Unspecified atrial fibrillation; I25.10 Atherosclerotic heart disease of native coronary artery without angina pectoris; I25.2 Old myocardial infarction; K21.9 Gastro-esophageal reflux disease without esophagitis; Z95.0 Presence of cardiac pacemaker; Z95.5 Presence of coronary angioplasty implant and graft; Z79.899 Other long term (current) drug therapy; Z79.01 Long term (current) use of anticoagulants; Z88.8 Allergy status to other drugs, medicaments and biological substances; Z91.030 Bee allergy status; Z88.0 Allergy status to penicillin; Z91.018 Allergy to other foods; W18.30XA Fall on same level, unspecified, initial encounter
CPT/HCPCS: 12001; 99282; 99283; J2003